=== PATIENT | female | born 1965 | race African-American/Black ===

== ENCOUNTER 2021-04-02 23:29 | Inpatient (IN) | payer MEDICAID, OTHER ==
[~2021-04-02] VITALS: Ht 162.6 cm; Wt 132.0 kg
[2021-04-03 02:28] LABS: Basophils # (auto) 0 10 ^3/uL (0-0.2); Basophils % (auto) 0.6 % (0.0-2.0); Eosinophils # (auto) 0.1 10 ^3/uL (0-0.8); Eosinophils % (auto) 1.1 % (0.0-7.0); Hematocrit 38.3 % (36.0-46.0); Hemoglobin 12.7 g/dL (12.2-16.2); Lymphocytes # (auto) 1.6 10 ^3/uL (0.4-5.4); Lymphocytes % (auto) 23.2 % (10.0-50.0); Mean Corpuscular Hemoglobin 29.1 pg (28.0-32.0); Mean Corpuscular Hgb Conc. 33.2 g/dL (32.0-36.0); Mean Corpuscular Volume 87.7 fL (80.0-100.0); Monocytes # (auto) 0.3 10 ^3/uL (0-1.3); Monocytes % (auto) 4.2 % (0.0-12.0); Neutrophils % (auto) 70.9 % (37.0-80.0); Nucleated Red Blood Cells % 0.1 %; Red Blood Cells 4.36 10^6/uL (4.0-5.20); Red Cell Distribution Width 14.8 % (11.8-14.3)
[2021-04-03 02:30] LABS: INR 1.1 (0.9-1.15); Partial Thromboplastin Time 26.1 sec (23.6-33.0)
[2021-04-03 02:31] LABS: Albumin 3.3 g/dL (3.4-5.0); BUN/Creatinine Ratio 10.7; Calcium 9.1 mg/dL (8.5-10.1); Magnesium 2.2 mg/dL (1.6-2.6); Potassium 3.4 mmol/L (3.5-5.1)
[2021-04-03 02:34] LABS: Bilirubin, Total 0.5 mg/dL (0.2-1.0); Total Protein 7.8 g/dL (6.4-8.2)
[2021-04-03 03:12] LABS: Urine Bacteria FEW /hpf (None Seen); Urine Blood Negative /uL (Negative); Urine Hyaline Cast FEW /lpf (0 - 2); Urine Mucus FEW (None Seen); Urine Specific Gravity 1.015 (1.001-1.035); Urine WBC 3 /hpf (0 - 5)
[2021-04-03] MEDS ORDERED: IOHEXOL 300 MG/ML 100ML BOTTLE IJ ONE (04:17)
[2021-04-03] MEDS ORDERED: ONDANSETRON HCL 4 MG/2 ML VIAL ONE (04:50)
[2021-04-03] MEDS ORDERED: ONDANSETRON HCL 4 MG/2 ML VIAL IV ONE (05:00)
[2021-04-03] MEDS ORDERED: HYDROmorphone HCL 2 MG/ML VL IV ONE (05:00)
[2021-04-03] MEDS ORDERED: POTASSIUM EFFERVESENT TAB 25 MEQ PO ONE (10:15)
[2021-04-03] MEDS ORDERED: TEMAZEPAM 15 MG CAP PO PRN (11:45)
[2021-04-03] MEDS ORDERED: LABETALOL HCL 5 MG/ML ML 20ML VIAL IV PRN (11:45)
[2021-04-03] MEDS ORDERED: PROMETHAZINE HCL 25 MG/ML 1ML IV PRN (11:45)
[2021-04-03] MEDS ORDERED: NITROGLYCERIN 0.4 MG SL TAB SL PRN (11:45)
[2021-04-03] MEDS ORDERED: cefTRIAXone 1GM/50ML D5W 50 ML IV ONE (11:45)
[2021-04-03] MEDS ORDERED: MORPHINE SULFATE INJECTION 2 MG/ML SYRG IV PRN (11:45)
[2021-04-03] MEDS ORDERED: ACETAMINOPHEN 500 MG TAB PO PRN (11:45)
[2021-04-03] MEDS: SODIUM CHLORIDE 0.9% 1,000 ML IV SCH ×2 (12:27→21:45)
[2021-04-03 12:39] LABS: Amphetamine Screen, Urine NEGATIVE (NEGATIVE); Barbiturate Scree,Urine NEGATIVE (NEGATIVE); Benzodiazephine Screen, Urine NEGATIVE (NEGATIVE); Cannabinoid Screen, Urine NEGATIVE (NEGATIVE); Cocaine Screen, Urine NEGATIVE (NEGATIVE)
[2021-04-03 12:42] LABS: Opiate Scree,Urine NEGATIVE (NEGATIVE); Phencyclidine Screen, Urine NEGATIVE (NEGATIVE)
[2021-04-03 12:52] LABS: Alcohol, Urine < 3.0 mg/dL (0-10)
[2021-04-03 18:04] VITALS: BP 145/81
[2021-04-03 20:00] VITALS: BP 142/88
[2021-04-03] MEDS: MORPHINE SULFATE INJECTION 2 MG/ML SYRG IV PRN (20:30)
[2021-04-03] MEDS: METOPROLOL TARTRATE 25 MG TAB PO SCH (21:30)
[2021-04-03 22:01] VITALS: BP 142/88
[2021-04-04] VITALS (7 sets, daily range): BP systolic 126–142; BP diastolic 74–88
[2021-04-04 05:30] LABS: Basophils # (auto) 0 10 ^3/uL (0-0.2); Basophils % (auto) 0.7 % (0.0-2.0); Eosinophils # (auto) 0.1 10 ^3/uL (0-0.8); Eosinophils % (auto) 1.4 % (0.0-7.0); Hematocrit 37.9 % (36.0-46.0); Hemoglobin 12.3 g/dL (12.2-16.2); Lymphocytes # (auto) 3.1 10 ^3/uL (0.4-5.4); Lymphocytes % (auto) 52.1 % (10.0-50.0); Mean Corpuscular Hemoglobin 28.7 pg (28.0-32.0); Mean Corpuscular Hgb Conc. 32.4 g/dL (32.0-36.0); Mean Corpuscular Volume 88.4 fL (80.0-100.0); Monocytes # (auto) 0.4 10 ^3/uL (0-1.3); Monocytes % (auto) 6.9 % (0.0-12.0); Neutrophils # (auto) 2.3 10 ^3/uL (1.6-8.6); Neutrophils % (auto) 38.9 % (37.0-80.0); Nucleated Red Blood Cells % 0.1 %; Red Blood Cells 4.28 10^6/uL (4.0-5.20); Red Cell Distribution Width 14.8 % (11.8-14.3); White Blood Cell 5.9 10^3/uL (4.4-10.8)
[2021-04-04 05:53] LABS: Albumin 2.8 g/dL (3.4-5.0); BUN/Creatinine Ratio 9.2; Calcium 8.5 mg/dL (8.5-10.1); Potassium 3.7 mmol/L (3.5-5.1)
[2021-04-04 05:56] LABS: Bilirubin, Total 0.5 mg/dL (0.2-1.0)
[2021-04-04] MEDS: SODIUM CHLORIDE 0.9% 1,000 ML IV SCH (08:00)
[2021-04-04] MEDS: cefTRIAXone 1GM/50ML D5W 50 ML IV SCH (09:08)
[2021-04-04] MEDS: ASPirin 81 mg TAB PO SCH (09:34)
[2021-04-04] MEDS: ENALAPRIL MALEATE 2.5 MG TAB PO SCH (09:34)
[2021-04-04] MEDS ORDERED: ENOXAPARIN SOD 40 MG/0.4 ML SYRINGE SC SCH (10:00)
[2021-04-04] MEDS: METOPROLOL TARTRATE 25 MG TAB PO SCH ×2 (10:29→22:30)
[2021-04-04] MEDS ORDERED: PANTOPRAZOLE 40 MG/10 ML VIAL INJ IV ONE (10:45)
[2021-04-04] MEDS ORDERED: IOHEXOL 350 MG/ML 100ML IJ ONE (11:38)
[2021-04-04] MEDS: MORPHINE SULFATE INJECTION 2 MG/ML SYRG IV PRN (22:30)
[2021-04-05 05:00] VITALS: BP 118/71
[2021-04-05 08:00] VITALS: BP 130/68
[2021-04-05] MEDS: cefTRIAXone 1GM/50ML D5W 50 ML IV SCH (08:33)
[2021-04-05] MEDS: METOPROLOL TARTRATE 25 MG TAB PO SCH ×2 (10:30→20:37)
[2021-04-05] MEDS: ENALAPRIL MALEATE 2.5 MG TAB PO SCH (10:30)
[2021-04-05] MEDS: ENOXAPARIN SOD 40 MG/0.4 ML SYRINGE SC SCH ×2 (10:30→20:35)
[2021-04-05] MEDS: PANTOPRAZOLE 40 MG/10 ML VIAL INJ IV SCH (10:30)
[2021-04-05] MEDS: ASPirin 81 mg TAB PO SCH (10:30)
[2021-04-05 12:00] VITALS: BP 146/87
[2021-04-05 16:00] VITALS: BP 114/53
[2021-04-05] MEDS: ERTAPENEM SOD INJ 1 GM in SODIUM CHL 0.9% 50 ML IV SCH (17:30)
[2021-04-05] MEDS: MORPHINE SULFATE INJECTION 2 MG/ML SYRG IV PRN (20:36)
[2021-04-05 22:00] VITALS: BP 163/84
[2021-04-05 23:26] VITALS: BP 154/78
[2021-04-05] MEDS: PROMETHAZINE HCL 25 MG/ML 1ML IV PRN (23:33)
[2021-04-06] MEDS: ALBUTEROL SULF 2.5 MG/0.5ML(0.5%) NEB SOLN NEB SCH ×4 (01:09→18:00)
[2021-04-06 05:00] VITALS: BP 149/74
[2021-04-06 09:00] VITALS: BP 115/68
[2021-04-06] MEDS: ENOXAPARIN SOD 40 MG/0.4 ML SYRINGE SC SCH ×2 (10:20→21:34)
[2021-04-06] MEDS: METOPROLOL TARTRATE 25 MG TAB PO SCH ×2 (10:27→21:34)
[2021-04-06] MEDS: ENALAPRIL MALEATE 2.5 MG TAB PO SCH (10:27)
[2021-04-06] MEDS: PANTOPRAZOLE 40 MG/10 ML VIAL INJ IV SCH (10:27)
[2021-04-06] MEDS: ASPirin 81 mg TAB PO SCH (10:44)
[2021-04-06 12:38] VITALS: BP 110/75
[2021-04-06] MEDS: ERTAPENEM SOD INJ 1 GM in SODIUM CHL 0.9% 50 ML IV SCH (16:30)
[2021-04-06 16:56] VITALS: BP 154/87
[2021-04-06] MEDS: traMADol HCL 50 MG TAB PO PRN (19:59)
[2021-04-06 20:33] VITALS: BP 157/87
[2021-04-06 22:00] VITALS: BP 151/88
[2021-04-07] MEDS: ALBUTEROL SULF 2.5 MG/0.5ML(0.5%) NEB SOLN NEB SCH ×4 (00:39→19:05)
[2021-04-07 05:00] VITALS: BP 129/65
[2021-04-07 08:59] VITALS: BP 141/85
[2021-04-07] MEDS: ENALAPRIL MALEATE 2.5 MG TAB PO SCH (10:46)
[2021-04-07] MEDS: METOPROLOL TARTRATE 25 MG TAB PO SCH ×2 (10:46→21:15)
[2021-04-07] MEDS: ASPirin 81 mg TAB PO SCH (10:47)
[2021-04-07] MEDS: PANTOPRAZOLE 40 MG/10 ML VIAL INJ IV SCH (10:47)
[2021-04-07] MEDS: ENOXAPARIN SOD 40 MG/0.4 ML SYRINGE SC SCH ×2 (10:47→21:16)
[2021-04-07] MEDS ORDERED: LACTULOSE 20Gm/30ML SOLN PO PRN (12:00)
[2021-04-07 12:53] VITALS: BP 147/80
[2021-04-07 16:30] VITALS: BP 139/73
[2021-04-07] MEDS: ERTAPENEM SOD INJ 1 GM in SODIUM CHL 0.9% 50 ML IV SCH (17:02)
[2021-04-07 21:50] VITALS: BP 158/76
[2021-04-08] MEDS: ALBUTEROL SULF 2.5 MG/0.5ML(0.5%) NEB SOLN NEB SCH ×4 (01:12→19:20)
[2021-04-08 04:52] VITALS: BP 128/62
[2021-04-08 08:31] VITALS: BP 145/75
[2021-04-08] MEDS: ASPirin 81 mg TAB PO SCH (09:00)
[2021-04-08] MEDS: PANTOPRAZOLE 40 MG/10 ML VIAL INJ IV SCH (09:00)
[2021-04-08] MEDS: ENOXAPARIN SOD 40 MG/0.4 ML SYRINGE SC SCH ×2 (09:01→22:10)
[2021-04-08] MEDS: ENALAPRIL MALEATE 2.5 MG TAB PO SCH (09:01)
[2021-04-08] MEDS: METOPROLOL TARTRATE 25 MG TAB PO SCH ×2 (09:01→21:54)
[2021-04-08 13:00] VITALS: BP 144/74
[2021-04-08 16:30] VITALS: BP 131/72
[2021-04-08] MEDS: ERTAPENEM SOD INJ 1 GM in SODIUM CHL 0.9% 50 ML IV SCH (17:01)
[2021-04-08 22:00] VITALS: BP 139/76
[2021-04-08 22:17] LABS: Cholesterol 113 mg/dL (< 200); HDL Cholesterol 51 mg/dL (40-59); LDL Cholesterol 46 mg/dL (< 100); Triglycerides 130 mg/dL (< 150)
[2021-04-08] MEDS: MORPHINE SULFATE INJECTION 2 MG/ML SYRG IV PRN (22:23)
[2021-04-09] MEDS: PROMETHAZINE HCL 25 MG/ML 1ML IV PRN (00:53)
[2021-04-09 05:00] VITALS: BP 134/75
[2021-04-09] MEDS: ALBUTEROL SULF 2.5 MG/0.5ML(0.5%) NEB SOLN NEB SCH ×4 (06:43→17:56)
[2021-04-09 08:00] VITALS: BP 123/74
[2021-04-09] MEDS: PANTOPRAZOLE 40 MG/10 ML VIAL INJ IV SCH (09:36)
[2021-04-09] MEDS: ASPirin 81 mg TAB PO SCH (09:36)
[2021-04-09] MEDS: ENOXAPARIN SOD 40 MG/0.4 ML SYRINGE SC SCH ×2 (09:36→22:17)
[2021-04-09] MEDS: ENALAPRIL MALEATE 2.5 MG TAB PO SCH (09:37)
[2021-04-09] MEDS: traMADol HCL 50 MG TAB PO PRN (09:37)
[2021-04-09] MEDS: METOPROLOL TARTRATE 25 MG TAB PO SCH ×2 (09:37→22:17)
[2021-04-09 11:55] VITALS: BP 139/70
[2021-04-09 16:58] VITALS: BP 156/86
[2021-04-09] MEDS: ERTAPENEM SOD INJ 1 GM in SODIUM CHL 0.9% 50 ML IV SCH (17:20)
[2021-04-09] MEDS: MORPHINE SULFATE INJECTION 2 MG/ML SYRG IV PRN (17:21)
[2021-04-09 22:00] VITALS: BP 138/92
[2021-04-10] MEDS: ALBUTEROL SULF 2.5 MG/0.5ML(0.5%) NEB SOLN NEB SCH ×4 (00:10→12:00)
[2021-04-10 00:32] VITALS: BP 138/92
[2021-04-10 05:00] VITALS: BP 115/71
[2021-04-10 09:00] VITALS: BP 124/74
[2021-04-10] MEDS: ENOXAPARIN SOD 40 MG/0.4 ML SYRINGE SC SCH (10:00)
[2021-04-10] MEDS: METOPROLOL TARTRATE 25 MG TAB PO SCH (10:00)
[2021-04-10] MEDS: PANTOPRAZOLE 40 MG/10 ML VIAL INJ IV SCH (10:00)
[2021-04-10] MEDS: ASPirin 81 mg TAB PO SCH (10:00)
[2021-04-10] MEDS: ENALAPRIL MALEATE 2.5 MG TAB PO SCH (10:01)
[2021-04-10 12:47] VITALS: BP 147/88
[2021-04-10 13:07] VITALS: BP 124/74
== END 2021-04-10 14:26 | disposition home health service (06) | DRG 720 ==
LOC: EDBD 23:29 → ER 23:29 → TELE 04-03 11:38 → TELE-WESTW 04-03 20:01
PROVIDERS: ADMIT Internal Medicine; ATTEND Family Medicine
PROC: 5A09357 Assistance with Respiratory Ventilation, Less than 24 Consecutive Hours, Continuous Positive Airway Pressure (ICD-10-PCS; 2021-04-03)
PROC: 05HD33Z Insertion of Infusion Device into Right Cephalic Vein, Percutaneous Approach (ICD-10-PCS; principal; 2021-04-06)
PROC: B54MZZA Ultrasonography of Right Upper Extremity Veins, Guidance (ICD-10-PCS; 2021-04-06)
PROC: 0GBG3ZX Excision of Left Thyroid Gland Lobe, Percutaneous Approach, Diagnostic (ICD-10-PCS; 2021-04-09)
DX: A41.51 Sepsis due to Escherichia coli [E. coli] (principal); I11.0 Hypertensive heart disease with heart failure; I50.9 Heart failure, unspecified; Z68.43 Body mass index [BMI] 50.0-59.9, adult; E66.01 Morbid (severe) obesity due to excess calories; E04.2 Nontoxic multinodular goiter; N39.0 Urinary tract infection, site not specified; R55 Syncope and collapse; E78.00 Pure hypercholesterolemia, unspecified; E78.5 Hyperlipidemia, unspecified; K59.00 Constipation, unspecified; Z16.12 Extended spectrum beta lactamase (ESBL) resistance; Z86.73 Personal history of transient ischemic attack (TIA), and cerebral infarction without residual deficits; Z79.899 Other long term (current) drug therapy; Z79.82 Long term (current) use of aspirin; Z82.0 Family history of epilepsy and other diseases of the nervous system; Z83.3 Family history of diabetes mellitus; Z87.11 Personal history of peptic ulcer disease; Z82.49 Family history of ischemic heart disease and other diseases of the circulatory system; Z80.0 Family history of malignant neoplasm of digestive organs; Z88.2 Allergy status to sulfonamides; Z88.8 Allergy status to other drugs, medicaments and biological substances
CPT/HCPCS: 36415; 70450; 70551; 71045; 71275; 74177; 76536; 76775; 76942; 80053; 80061; 80307; 81001; 82550; 83735; 83880; 84443; 84484; 85025; 85379; 85610; 85730; 87086; 87088; 87186; 87426; 93005; 93306; 93886; 93970; 94640; 94660; 95819; 96365; 96366; 96375; C9113; G0378; J0696; J1335; J2405

== ENCOUNTER → 2021-04-10 | Emergency (ER) | payer MEDICAID | END | disposition left against medical advice (07) | LOC: ER 19:00 | DX: R30.0 Dysuria (principal); Z53.21 Procedure and treatment not carried out due to patient leaving prior to being seen by health care provider ==

== ENCOUNTER → 2021-04-11 | Emergency (ER) | payer MEDICAID | END | disposition left against medical advice (07) | LOC: ER 15:12 | DX: Z45.2 Encounter for adjustment and management of vascular access device (principal); Z53.21 Procedure and treatment not carried out due to patient leaving prior to being seen by health care provider ==

== ENCOUNTER 2021-04-12 15:25 | Emergency (ER) | payer MEDICAID ==
[~2021-04-12] VITALS: Ht 157.5 cm; Wt 129.3 kg
[2021-04-12 16:15] VITALS: BP 133/66
== END 2021-04-12 16:44 | disposition home or self-care (01) ==
LOC: ER 15:25
DX: T80.219A Unspecified infection due to central venous catheter, initial encounter (principal); R51.9 Headache, unspecified; I11.0 Hypertensive heart disease with heart failure; I50.9 Heart failure, unspecified; E78.5 Hyperlipidemia, unspecified; Z98.890 Other specified postprocedural states; Z86.73 Personal history of transient ischemic attack (TIA), and cerebral infarction without residual deficits; Z87.442 Personal history of urinary calculi; Z88.8 Allergy status to other drugs, medicaments and biological substances; Z88.2 Allergy status to sulfonamides

== ENCOUNTER 2022-03-13 18:43 | Emergency (ER) | payer MEDICAID ==
[~2022-03-13] VITALS: Ht 157.5 cm; Wt 135.0 kg
[2022-03-13 18:51] VITALS: BP 156/71
[2022-03-13 19:12] LABS: Basophils # (auto) 0.1 10 ^3/uL (0-0.2); Basophils % (auto) 1.4 % (0.0-2.0); Eosinophils # (auto) 0.1 10 ^3/uL (0-0.8); Eosinophils % (auto) 1.7 % (0.0-7.0); Hematocrit 41.7 % (36.0-46.0); Hemoglobin 13.5 g/dL (12.2-16.2); Lymphocytes # (auto) 2.8 10 ^3/uL (0.4-5.4); Lymphocytes % (auto) 50.9 % (10.0-50.0); Mean Corpuscular Hemoglobin 28.2 pg (28.0-32.0); Mean Corpuscular Hgb Conc. 32.3 g/dL (32.0-36.0); Mean Corpuscular Volume 87.3 fL (80.0-100.0); Monocytes # (auto) 0.4 10 ^3/uL (0-1.3); Monocytes % (auto) 6.9 % (0.0-12.0); Neutrophils # (auto) 2.1 10 ^3/uL (1.6-8.6); Neutrophils % (auto) 39.1 % (37.0-80.0); Red Blood Cells 4.78 10^6/uL (4.0-5.20); Red Cell Distribution Width 14.5 % (11.8-14.3); White Blood Cell 5.4 10^3/uL (4.4-10.8)
[2022-03-13 19:23] LABS: Urine Bacteria NONE SEEN /hpf (None Seen); Urine Blood 1+ /uL (Negative); Urine Mucus FEW (None Seen); Urine Specific Gravity 1.023 (1.001-1.035); Urine WBC 2 /hpf (0 - 5)
[2022-03-13 19:29] LABS: Albumin 3.6 g/dL (3.4-5.0); Calcium 8.9 mg/dL (8.5-10.1); Potassium 3.8 mmol/L (3.5-5.1)
[2022-03-13 19:33] LABS: BUN/Creatinine Ratio 14.9; Bilirubin, Total 0.4 mg/dL (0.2-1.0); Total Protein 7.6 g/dL (6.4-8.2)
== END 2022-03-13 23:25 | disposition left against medical advice (07) ==
LOC: ER 18:44
DX: K92.0 Hematemesis (principal); R10.32 Left lower quadrant pain; R00.2 Palpitations; R06.02 Shortness of breath; Z53.21 Procedure and treatment not carried out due to patient leaving prior to being seen by health care provider
CPT/HCPCS: 36415; 80053; 81001; 84484; 85025; 93005

== ENCOUNTER 2022-03-25 09:54 | Day surgery (SDC) | payer MEDICAID ==
[2022-03-23 14:29] LABS: Basophils # (auto) 0.1 10 ^3/uL (0-0.2); Basophils % (auto) 1.4 % (0.0-2.0); Eosinophils # (auto) 0.1 10 ^3/uL (0-0.8); Eosinophils % (auto) 1.9 % (0.0-7.0); Hematocrit 39.9 % (36.0-46.0); Hemoglobin 12.8 g/dL (12.2-16.2); Lymphocytes # (auto) 2.3 10 ^3/uL (0.4-5.4); Lymphocytes % (auto) 46.7 % (10.0-50.0); Mean Corpuscular Hemoglobin 28.2 pg (28.0-32.0); Mean Corpuscular Hgb Conc. 32.1 g/dL (32.0-36.0); Mean Corpuscular Volume 87.8 fL (80.0-100.0); Monocytes # (auto) 0.3 10 ^3/uL (0-1.3); Monocytes % (auto) 5.2 % (0.0-12.0); Neutrophils # (auto) 2.2 10 ^3/uL (1.6-8.6); Neutrophils % (auto) 44.8 % (37.0-80.0); Red Blood Cells 4.55 10^6/uL (4.0-5.20); Red Cell Distribution Width 14.8 % (11.8-14.3); White Blood Cell 4.8 10^3/uL (4.4-10.8)
[2022-03-23 14:55] LABS: Albumin 3.2 g/dL (3.4-5.0); Calcium 8.8 mg/dL (8.5-10.1); INR 1.05 (0.9-1.15); Partial Thromboplastin Time 26.6 sec (24.6-33.4); Potassium 3.9 mmol/L (3.5-5.1)
[2022-03-23 15:00] LABS: BUN/Creatinine Ratio 9.6; Bilirubin, Total 0.4 mg/dL (0.2-1.0); Total Protein 7.8 g/dL (6.4-8.2)
[~2022-03-25] VITALS: Ht 157.5 cm; Wt 134.3 kg
[~2022-03-25 09:54] MED LIST: ASPI81CH59 PO; CARV3.1240 PO; FURO20TA3 PO; LEVO25TA49 PO; LOSA-39 PO; METH750T22 PO
[2022-03-25] MEDS ORDERED: LIDOCAINE VISCOUS 2% 15ML UD ONE (10:26)
[2022-03-25] MEDS ORDERED: MIDAZOLAM HCL 5 MG/ML-1ML VIAL ONE (10:26)
[2022-03-25] MEDS ORDERED: diphenhdrAMINE HCL 50 MG/1 ML VL ONE (10:27)
[2022-03-25] MEDS ORDERED: fentaNYL CITRATE 100 MCG/2 ML VL ONE (10:27)
[2022-03-25] MEDS ORDERED: MIDAZOLAM HCL 2MG/2ML 2ml VIAL (1mg/ml) ONE (12:02)
[2022-03-25] MEDS ORDERED: KETAMINE HCL 10 ML ONE (12:02)
[2022-03-25 12:55] VITALS: BP 134/61
== END 2022-03-25 13:15 | disposition home or self-care (01) ==
LOC: GI 09:54
PROVIDERS: ATTEND Internal Medicine Gastroenterology
DX: K21.9 Gastro-esophageal reflux disease without esophagitis (principal); R10.84 Generalized abdominal pain; K21.00 Gastro-esophageal reflux disease with esophagitis, without bleeding; K29.50 Unspecified chronic gastritis without bleeding; K44.9 Diaphragmatic hernia without obstruction or gangrene; R11.2 Nausea with vomiting, unspecified; I11.0 Hypertensive heart disease with heart failure; I50.9 Heart failure, unspecified; Z79.899 Other long term (current) drug therapy; Z88.8 Allergy status to other drugs, medicaments and biological substances; Z98.891 History of uterine scar from previous surgery; I73.9 Peripheral vascular disease, unspecified; Z20.822 Contact with and (suspected) exposure to COVID-19
CPT/HCPCS: 36415; 43239; 80053; 85025; 85610; 85730; 88305; 88312; 88342; J2250; J3010; J7030; U0003

== ENCOUNTER 2022-09-17 09:57 | Inpatient (IN) | payer MEDICAID ==
[~2022-09-17] VITALS: Ht 157.5 cm; Wt 137.8 kg
[2022-09-17 10:48] LABS: Basophils # (auto) 0 10 ^3/uL (0-0.2); Basophils % (auto) 0.3 % (0.0-2.0); Eosinophils # (auto) 0.1 10 ^3/uL (0-0.8); Eosinophils % (auto) 2.3 % (0.0-7.0); Hematocrit 39.9 % (36.0-46.0); Hemoglobin 13.3 g/dL (12.2-16.2); Lymphocytes # (auto) 2.2 10 ^3/uL (0.4-5.4); Lymphocytes % (auto) 44.4 % (10.0-50.0); Mean Corpuscular Hemoglobin 28.7 pg (28.0-32.0); Mean Corpuscular Hgb Conc. 33.4 g/dL (32.0-36.0); Mean Corpuscular Volume 85.7 fL (80.0-100.0); Monocytes # (auto) 0.2 10 ^3/uL (0-1.3); Monocytes % (auto) 4.2 % (0.0-12.0); Neutrophils # (auto) 2.4 10 ^3/uL (1.6-8.6); Neutrophils % (auto) 48.8 % (37.0-80.0); Nucleated Red Blood Cells % 0.2 %; Red Blood Cells 4.65 10^6/uL (4.0-5.20); White Blood Cell 4.9 10^3/uL (4.4-10.8)
[2022-09-17 10:49] LABS: Albumin 3.3 g/dL (3.4-5.0); Calcium 9.5 mg/dL (8.5-10.1); Magnesium 2.4 mg/dL (1.6-2.6)
[2022-09-17 10:50] LABS: INR 1.03 (0.9-1.15); Partial Thromboplastin Time 26.2 sec (24.6-33.4)
[2022-09-17 10:53] LABS: BUN/Creatinine Ratio 12.8 (10.0-20.0); Bilirubin, Total 0.5 mg/dL (0.2-1.0); Total Protein 7.3 g/dL (6.4-8.2)
[2022-09-17] MEDS ORDERED: ENOXAPARIN SOD 40 MG/0.4 ML SYRINGE SC ONE (13:30)
[2022-09-17] MEDS ORDERED: NITROGLYCERIN 0.4 MG SL TAB SL PRN (13:30)
[2022-09-17] MEDS ORDERED: ACETAMINOPHEN 325 MG TAB PO PRN (13:30)
[2022-09-17] MEDS ORDERED: CARVEDILOL 3.125 MG TAB PO ONE (14:30)
[2022-09-17] MEDS ORDERED: FUROSEMIDE 20 MG TAB PO ONE (14:30)
[2022-09-17] MEDS ORDERED: HYDROcodone-ACET 5/325MG TAB PO ONE (16:00)
[2022-09-17] MEDS: CARVEDILOL 3.125 MG TAB PO SCH (22:11)
[2022-09-17] MEDS: ONDANSETRON HCL 4 MG/2 ML VIAL IV PRN (22:37)
[2022-09-17] MEDS: MORPHINE SULFATE 4 MG/ML SYR/VIAL IV PRN (22:39)
[2022-09-17] MEDS: ENOXAPARIN SOD 150 MG/1 ML SYRINGE SC SCH (22:46)
[2022-09-18 00:48] LABS: Urine Bacteria NONE SEEN /hpf (None Seen); Urine Blood Negative /uL (Negative); Urine Hyaline Cast FEW /lpf (0 - 2); Urine Mucus FEW (None Seen); Urine Specific Gravity 1.021 (1.001-1.035); Urine WBC 3 /hpf (0 - 5)
[2022-09-18] MEDS: MORPHINE SULFATE 4 MG/ML SYR/VIAL IV PRN ×2 (02:20→11:01)
[2022-09-18] MEDS: ONDANSETRON HCL 4 MG/2 ML VIAL IV PRN ×2 (02:24→12:01)
[2022-09-18 05:05] VITALS: BP 140/76
[2022-09-18] MEDS ORDERED: LEVOTHYROXINE SODIUM 50 MCG TAB PO SCH (07:00)
[2022-09-18] MEDS ORDERED: IOHEXOL 350 MG/ML 100ML IJ ONE (07:55)
[2022-09-18 08:00] VITALS: BP_SYST 115; BP_DIAS 47; BP_DIAS 97
[2022-09-18 08:16] LABS: Basophils # (auto) 0 10 ^3/uL (0-0.2); Basophils % (auto) 0.7 % (0.0-2.0); Eosinophils # (auto) 0.1 10 ^3/uL (0-0.8); Hematocrit 37.9 % (36.0-46.0); Hemoglobin 12.8 g/dL (12.2-16.2); Lymphocytes # (auto) 2.4 10 ^3/uL (0.4-5.4); Lymphocytes % (auto) 40.7 % (10.0-50.0); Mean Corpuscular Hemoglobin 29.2 pg (28.0-32.0); Mean Corpuscular Hgb Conc. 33.9 g/dL (32.0-36.0); Mean Corpuscular Volume 86.1 fL (80.0-100.0); Monocytes # (auto) 0.4 10 ^3/uL (0-1.3); Monocytes % (auto) 7.6 % (0.0-12.0); Neutrophils # (auto) 2.8 10 ^3/uL (1.6-8.6); Red Cell Distribution Width 15.1 % (11.8-14.3); White Blood Cell 5.8 10^3/uL (4.4-10.8)
[2022-09-18 08:50] LABS: Calcium 9.1 mg/dL (8.5-10.1); Potassium 3.4 mmol/L (3.5-5.1)
[2022-09-18 08:55] LABS: BUN/Creatinine Ratio 14.8 (10.0-20.0); Bilirubin, Total 0.5 mg/dL (0.2-1.0); Total Protein 7.3 g/dL (6.4-8.2)
[2022-09-18] MEDS: ENOXAPARIN SOD 150 MG/1 ML SYRINGE SC SCH (09:16)
[2022-09-18] MEDS: CARVEDILOL 3.125 MG TAB PO SCH (09:18)
[2022-09-18] MEDS ORDERED: DOCUSATE SOD 100 MG CAP PO SCH (10:00)
[2022-09-18] MEDS ORDERED: ASPirin 81 mg TAB PO SCH (10:00)
[2022-09-18] MEDS ORDERED: FUROSEMIDE 20 MG TAB PO SCH (10:00)
[2022-09-18] MEDS ORDERED: LOSARTAN POTASSIUM 50 MG TAB PO SCH ×2 (10:00)
[2022-09-18 12:00] VITALS: BP 143/71
[2022-09-18] MEDS ORDERED: MORPHINE SULFATE INJ 2 MG/ml SYRG IV PRN (12:00)
[2022-09-18 15:43] VITALS: BP 143/71
[2022-09-18 16:00] VITALS: BP 124/81
[2022-09-19 14:29] LABS: Hepatitis C Antibody Negative (Negative)
== END 2022-09-18 16:50 | disposition home or self-care (01) | DRG 198 ==
LOC: ER 09:57 → TELE 13:34 → TELE-CENTR 09-18 05:00
PROVIDERS: ADMIT Nurse Practitioner Family; ATTEND Nurse Practitioner Family
DX: R07.89 Other chest pain (principal); I20.0 Unstable angina; I11.0 Hypertensive heart disease with heart failure; I50.9 Heart failure, unspecified; E03.9 Hypothyroidism, unspecified; E78.5 Hyperlipidemia, unspecified; J45.909 Unspecified asthma, uncomplicated; E66.01 Morbid (severe) obesity due to excess calories; G47.30 Sleep apnea, unspecified; Z80.0 Family history of malignant neoplasm of digestive organs; Z82.0 Family history of epilepsy and other diseases of the nervous system; Z86.73 Personal history of transient ischemic attack (TIA), and cerebral infarction without residual deficits; Z87.442 Personal history of urinary calculi
CPT/HCPCS: 36415; 71046; 71275; 80053; 81001; 83735; 83880; 84100; 84484; 85025; 85379; 85610; 85730; 86803; 87340; 93005; 93306; 96372; G0378; J2405

== ENCOUNTER → 2023-06-22 | Outpatient (CLI) | payer MEDICAID ==
[~2023-06-22] MED LIST changes: +ALBUTEROL SULF 2.5 MG/0.5ML(0.5%) NEB SOLN ONE; -LOSA-39 PO; +LOSA100T58 PO; +METH-1182 PO; -METH750T22 PO
== END | disposition home or self-care (01) ==
LOC: RT 10:34
PROVIDERS: ATTEND Internal Medicine Pulmonary Disease
DX: Z01.810 Encounter for preprocedural cardiovascular examination (principal); R06.09 Other forms of dyspnea
CPT/HCPCS: 94060; 94727; 94729

== ENCOUNTER 2024-03-14 14:06 | Emergency (ER) | payer MEDICAID ==
[~2024-03-14] VITALS: Ht 170.2 cm; Wt 104.5 kg
[~2024-03-14 14:06] MED LIST changes: -ALBUTEROL SULF 2.5 MG/0.5ML(0.5%) NEB SOLN ONE; +HYDR-4902 PO; +LEVO25TA2 PO; -LEVO25TA49 PO; +LOSA-535 PO; -LOSA100T58 PO
[2024-03-14] MEDS: PANTOPRAZOLE 40 MG/10 ML VIAL INJ IV ONE (15:00)
[2024-03-14 16:41] LABS: Urine Bacteria None Seen /hpf (None Seen)
[2024-03-14 16:41] LABS: Basophils # (auto) 0.1 10 ^3/uL (0-0.2); Basophils % (auto) 1.1 % (0.0-2.0); Eosinophils # (auto) 0.1 10 ^3/uL (0-0.8); Eosinophils % (auto) 2.3 % (0.0-7.0); Hemoglobin 13.4 g/dL (12.2-16.2); Lymphocytes # (auto) 2.2 10 ^3/uL (0.4-5.4); Lymphocytes % (auto) 42.2 % (10.0-50.0); Mean Corpuscular Hemoglobin 29.8 pg (28.0-32.0); Mean Corpuscular Hgb Conc. 32.7 g/dL (32.0-36.0); Mean Corpuscular Volume 91.3 fL (80.0-100.0); Monocytes # (auto) 0.5 10 ^3/uL (0-1.3); Monocytes % (auto) 10.4 % (0.0-12.0); Neutrophils # (auto) 2.3 10 ^3/uL (1.6-8.6); Nucleated Red Blood Cells % 0.1 %; Platelet Count (auto) 235 10^3/uL (140-450); Red Blood Cells 4.49 10^6/uL (4.0-5.20); Red Cell Distribution Width 14.7 % (11.8-14.3); White Blood Cell 5.3 10^3/uL (4.4-10.8)
[2024-03-14 16:54] LABS: INR 1.1 (0.9-1.15); Partial Thromboplastin Time 28.7 SEC (24.5-34.5); Prothrombin Time 11.6 sec (9.3-11.8)
[2024-03-14 16:59] LABS: Alanine Aminotransferase 17 U/L (7-40); Albumin 3.9 g/dL (3.2-4.8); Alkaline Phosphatase 56 U/L (46-116); Anion Gap 8 (5-15); Aspartate Aminotransferase 18 U/L (13-40); BUN/Creatinine Ratio 9.9 (10.0-20.0); Blood Urea Nitrogen 7 mg/dL (9-23); Calcium 9.8 mg/dL (8.7-10.4); Carbon Dioxide 27 mmol/L (20-31); Chloride 108 mmol/L (98-107); Glucose 82 mg/dL (74-106); Potassium 4.3 mmol/L (3.5-5.1); Sodium 143 mmol/L (136-145)
[2024-03-14 17:00] LABS: Bilirubin, Total 0.4 mg/dL (0.2-1.0); Total Protein 6.8 g/dL (5.7-8.2)
[2024-03-14 17:13] LABS: Urine Blood TRACE /uL (Negative); Urine Clarity Clear (Clear); Urine Color Light-Yellow (Yellow); Urine Mucus FEW (None Seen); Urine Protein, UAD Negative (Negative); Urine Specific Gravity 1.009 (1.001-1.035); Urine Urobilinogen Normal (Negative); Urine WBC 1 /hpf (0 - 5); Urine pH 5.5 (5.0-9.0)
[2024-03-14] MEDS: MORPHINE SULFATE 4 MG/ML SYR/VIAL IV ONE (17:46)
[2024-03-14] MEDS: ONDANSETRON HCL 4 MG/2 ML VIAL IV ONE (17:47)
[2024-03-14] MEDS: SODIUM CHLORIDE 0.9% 500 ML IV ONE (17:47)
[2024-03-14] MEDS ORDERED: OMEP-434 PO (18:39)
[2024-03-14 19:00] VITALS: BP 141/82; PULSE 63; RESP 19; TEMP 98.3; O2SAT 95
== END 2024-03-14 19:02 | disposition home or self-care (01) ==
LOC: EDBD 14:06 → ER 14:12
DX: K92.2 Gastrointestinal hemorrhage, unspecified (principal); M79.652 Pain in left thigh; I11.0 Hypertensive heart disease with heart failure; I50.9 Heart failure, unspecified; E78.5 Hyperlipidemia, unspecified; J45.909 Unspecified asthma, uncomplicated; Z86.73 Personal history of transient ischemic attack (TIA), and cerebral infarction without residual deficits; Z98.890 Other specified postprocedural states; Z88.2 Allergy status to sulfonamides; Z88.8 Allergy status to other drugs, medicaments and biological substances; Z79.899 Other long term (current) drug therapy; Z79.82 Long term (current) use of aspirin
CPT/HCPCS: 36415; 74176; 80053; 81001; 83605; 85025; 85610; 85730; 96361; 96374; 96375; 99285; J2270; J2405; J2470; J7040

== ENCOUNTER 2024-04-09 10:40 | Inpatient (IN) | payer MEDICAID ==
[~2024-04-09] VITALS: Ht 157.5 cm; Wt 104.3 kg
[~2024-04-09 10:40] MED LIST changes: +OMEP-434 PO
--- NOTE | 2024-04-09 11:10 | ED.PDOC ---
History of Present Illness HPI Comments 59-year-old female presents with a chief complaint of abdominal pain, nausea, vomiting, and dizziness. Patient reports that she was seen last night at [facility] and states that she had a CT scan that showed she had a cyst and a urinary tract infection. Patient reports that she had bariatric surgery in October 2023 and a revision surgery in December 2023 due to a complication. Patient mentions that she has not been able to take her antibiotics from [facility] due to her persistent nausea. Patient reports that she has a follow-up appointment with her PMD on 04/15/2024. No other symptoms or modifying factors present at this time. Chief Complaint: Dizziness Time Seen by MD: 10:57 Primary Care Provider: unknown Reviewed Notes: Medications, Allergies Allergies: Coded Allergies: Propofol (Verified Allergy, Unknown, 04/02/21) Sulfa Antibiotics (Verified Allergy, Unknown, 04/02/21) Home Meds Active Scripts Omeprazole Magnesium (Omeprazole) 20 Mg Tab, 20 MG PO DAILY, #30 TAB Prov:DANUTA CADENA MD 03/14/24 Hydrocodone-Acetaminophen (Hydrocodone Bitartrate/AC 5-325 mg) 1 Tab Tab, 1 TAB PO Q4HP PRN, #20 TAB Prov:YESI AMIN DO 09/02/23 Reported Medications Losartan Potassium (Losartan Potassium) 100 Mg Tab, 100 MG PO DAILY, TAB 03/24/22 Furosemide (Furosemide) 20 Mg Tab, 20 MG PO, TAB 03/24/22 Aspirin (Aspirin Low Dose) 81 Mg Chw, 81 MG PO DAILY, TAB.CHEW 03/24/22 Carvedilol (Carvedilol) 3.125 Mg Tab, 3.125 MG PO BID, TAB 03/24/22 Methocarbamol (Methocarbamol) 750 Mg Tab, 750 MG PO TID, TAB 03/24/22 Levothyroxine Sodium (Synthroid) 25 Mcg Tab, 50 MCG PO, TAB 03/24/22 Information Source: Patient Mode of Arrival: Ambulatory Severity: Moderate Timing: Days Duration: Since onset Prehospital treatment: None Past Medical History PAST MEDICAL HISTORY: Asthma, CHF, CVA, High Lipids, HTN, Kidney Stones 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: Uterine Fibroids Family History Family History: Family hx of heart [place] Social History Smoker: Non-Smoker Alcohol: Denies ETOH Use Drugs: Denies Drug Use Lives In: Home Constitutional: denies: chills, diaphoresis, fatigue, fever, malaise, sweats, weakness, others EENTM: denies: blurred vision, double vision, ear bleeding, ear discharge, ear drainage, ear pain, ear ringing, eye pain, eye redness, hearing loss, mouth bobo n, mouth swelling, nasal discharge, nose bleeding, nose congestion, nose pain, photophobia, tearing, throat pain, throat swelling, voice changes, others Respiratory: denies: cough, hemoptysis, orthopnea, SOB at rest, shortness of breath, SOB with excertion, stridor, wheezing, others Cardiovascular: denies: chest pain, dizzy spells, diaphoresis, Dyspnea on exertion, edema, irregular heart beat, left arm pain, lightheadedness, palpitations, PND, syncope, others Gastrointestinal: reports: abdominal pain, nausea, vomiting; denies: abdomen distended, blood streaked bowels, constipated, diarrhea, dysphagia, difficulty swallowing, hematemesis, melena, poor appetite, poor fluid intake, rectal bleeding, rectal pain, others Genitourinary: denies: abnormal vagina bleeding, burning, dyspareunia, dysuria, flank pain, frequency, hematuria, incontinence, pain, , vagina discharge, urgency, others Neurological: reports: dizziness; denies: fainting, headache, left sided numbness, left sided weakness, numbness, paresthesia, pre-existing deficit, right sided numbness, right sided weakness, seizure, speech problems, tingling, tremors, weakness, others Musculoskeletal: denies: back pain, gout, joint pain, joint swelling, muscle pain, muscle stiffness, neck pain, others Integumetry: denies: bruises, change in color, change in hair/nails, dryness, laceration, lesions, lumps, rash, wounds, others Allergic/Immunocompromised: denies: Difficulty Healing, Frequent Infections, Hives, Itching, others Hematologic/Lymphatic: denies: anemia, blood clots, easy bleeding, easy bruising, swollen glands, others Endocrine: denies: excessive hunger, excessive sweating, excessive thirst, excessive urination, flushing, intolerance to cold, intolerance to heat, unexplained weight gain, unexplained weight loss, others Psychiatric: denies: anxiety, bipolar disorder, depression, hopeless, panic disorder, schizophrenia, sleepless, suicidal, others All Other Systems: Reviewed and Negative Physical Exam General Appearance: Moderate Distress, Normal HEENT: Normal ENT Inspection, Pharynx Normal, TMs Normal Neck: Full Range of Motion, Non-Tender, Normal, Normal Inspection Respiratory: Chest Non-Tender, Lungs Clear, No Accessory Muscle Use, No Re spiratory Distress, Normal Breath Sounds Cardiovascular: No Edema, No JVD, No Murmur, No Gallop, Normal Peripheral Pulses, Regular Rate/Rhythm Breast Exam: Deferred Gastrointestinal: No Organomegaly, Non Tender, No Pulsatile Mass, Normal Bowel Sounds, Soft Genitalia: Deferred Pelvic: Deferred Rectal: Deferred Extremities: No calf tenderness, Normal capillary refill, Normal inspection, Normal range of motion, Non-tender, No pedal edema Musculoskeletal : Apperance: Normal Neurologic: Alert, 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 Was a procedure done?: No Differential Dx Considerations may include: Autonomic disorder Electrolyte imbalance X-Ray, Labs, Meds, VS Vital Signs Date Time Temp Pulse Resp B/P (MAP) Pulse Ox O2 Delivery O2 Flow Rate FiO2 04/09/24 12:37 71 16 96 Room Air* 0 21 04/09/24 12:37 71 16 144/62 (89) 96 04/09/24 10:57 77 04/09/24 10:56 98.3 77 16 160/99 (119) 96 Lab Test 04/09/24 16:06 04/09/24 11:05 04/09/24 10:55 Range/Units Urine Color Dark-yellow Yellow Urine Clarity Clear Clear Urine pH 5.5 5.0-9.0 Urine Specific [place] 1.050 H 1.001-1.035 Urine Protein Trace H Negative Urine Ketones 1+ H Negative Urine Blood Negative Negative /uL Urine Nitrite Negative Negative Urine Bilirubin Negative Negative Urine Urobilinogen Normal Negative mg/dL Urine Leukocyte Esterase Negative Negative /uL Urine RBC 6 0 - 4 /hpf Urine WBC 5 0 - 5 /hpf Urine Squamous Epithelial Cells Few <5 /hpf Urine Calcium Oxalate Crystals Few None Seen Urine Bacteria None seen None Seen /hpf Urine Mucus Few None Seen Urine Glucose Normal Normal mg/dL White Blood Count 5.3 4.4-10.8 10^3/uL Red Blood Count 4.75 4.0-5.20 10^6/uL Hemoglobin 14.0 12.2-16.2 g/dL Hematocrit 42.7 36.0-46.0 % Mean Corpuscular Volume 89.9 80.0-100.0 fL Mean Corpuscular Hemoglobin 29.5 28.0-32.0 pg Mean Corpuscular Hemoglobin Concent 32.8 32.0-36.0 g/dL Red Cell Distribution Width 14.2 11.8-14.3 % Platelet Count 241 140-450 10^3/uL Mean Platelet Volume 8.0 6.9-10.8 fL Neutrophils (%) (Auto) 51.1 37.0-80.0 % Lymphocytes (%) (Auto) 38.1 10.0-50.0 % Monocytes (%) (Auto) 8.3 0.0-12.0 % Eosinophils (%) (Auto) 1.4 0.0-7.0 % Basophils (%) (Auto) 1.1 0.0-2.0 % Neutrophils # (Auto) 2.7 1.6-8.6 10 ^3/uL Lymphocytes # (Auto) 2.0 0.4-5.4 10 ^3/uL Monocytes # (Auto) 0.4 0-1.3 10 ^3/uL Eosinophils # (Auto) 0.1 0-0.8 10 ^3/uL Basophils # (Auto) 0.1 0-0.2 10 ^3/uL Nucleated Red Blood Cells 0.1 % D-Dimer, Quantitative 0.70 H 0.0-0.49 mg/L FEU Sodium Level 140 136-145 mmol/L Potassium Level 3.7 3.5-5.1 mmol/L Chloride Level 106 98-107 mmol/L Carbon Dioxide Level 27 20-31 mmol/L Anion Gap 7 5-15 Blood Urea Nitrogen 9 9-23 mg/dL Creatinine 0.78 0.550-1.02 mg/dL Glomerular Filtration Rate Calc 87 >90 mL/min BUN/Creatinine Ratio 11.5 10.0-20.0 Serum Glucose 92 74-106 mg/dL Calcium Level 9.9 8.7-10.4 mg/dL B-Type Natriuretic Peptide 51.21 0-100 pg/mL POC Glucose 92 70-106 mg/dl Current Medications Medications (Trade) Dose Ordered Sig/Daniel Route Start Time Stop Time Status Last Admin Ondansetron HCl (Zofran) 4 mg ONCE ONCE IV 04/09/24 13:15 04/09/24 13:16 DC 04/09/24 13:20 Acetaminophen/ Hydrocodone Bitart ([place] 10/325MG Tab) 1 tab ONCE ONCE PO 04/09/24 13:15 04/09/24 13:16 DC 04/09/24 14:00 Sodium Chloride (Saline Lock Ns) 10 ml Q8HR IV 04/09/24 14:00 04/09/24 14:00 Patient alert. Complaining of dizziness weakness. Was seen at [facility] yesterday. Vitals stable. Blood pressure elevated. Was diagnosed with UTI and sent home. He just filled her prescription of her antibiotic. She has not taken any medication. Reviewed her history. Explained to the patient. EKG reviewed does not show any acute changes. Time of 1ST Reevaluation: 11:27 Reevaluation 1ST: Unchanged Patient Education/Counseling: Diagnosis, Treatment, Prognosis Family Education/Counseling: No Family Present Departure 1 Departure Time of Disposition: 11:15 Impression: Primary Impression: Hypertensive urgency Additional Impressions: Autonomic disorder Generalized weakness Disposition: ADMITTED INPATIENT Admit to: Med Surg Condition: Guarded Critical Care Note Critical Care Time?: Yes (45 min-critical care time only) Stability Stability form required: No Heart Score Heart Score: Heart Score Response (Comments) Value History Slightly Suspicious 0 EKG Normal 0 Age 45-64 1 Risk Factors 1 or 2 risk factors 1 Troponin Normal limit 0 Total 2 I personally scribed for ERICK ANGEL MD ([email or web address]) on 04/09/24 at 11:10. Electronically submitted by Tomer Jessica ([email or web address]). ERICK ANGEL MD Apr 09, 2024 11:10
--- NOTE | 2024-04-09 11:39 | DVH ---
CHEST RADIOGRAPH Indication:sob Technique: Single frontal view of the chest was obtained COMPARISON: XY CHEST PORTABLE on DOS: 09/17/22 FINDINGS: Lines and Tubes: None Lungs: Clear Pleura: No effusion. No pneumothorax. Cardiomediastinal contours: Unremarkable Bones: Unremarkable IMPRESSION: No acute disease.
[2024-04-09 11:49] LABS: Chloride 106 mmol/L (98-107); Potassium 3.7 mmol/L (3.5-5.1); Sodium 140 mmol/L (136-145)
[2024-04-09 11:50] LABS: Anion Gap 7 (5-15); Calcium 9.9 mg/dL (8.7-10.4); Carbon Dioxide 27 mmol/L (20-31)
[2024-04-09 11:51] LABS: Basophils # (auto) 0.1 10 ^3/uL (0-0.2); Basophils % (auto) 1.1 % (0.0-2.0); Eosinophils # (auto) 0.1 10 ^3/uL (0-0.8); Eosinophils % (auto) 1.4 % (0.0-7.0); Hematocrit 42.7 % (36.0-46.0); Lymphocytes % (auto) 38.1 % (10.0-50.0); Mean Corpuscular Hemoglobin 29.5 pg (28.0-32.0); Mean Corpuscular Hgb Conc. 32.8 g/dL (32.0-36.0); Mean Corpuscular Volume 89.9 fL (80.0-100.0); Monocytes # (auto) 0.4 10 ^3/uL (0-1.3); Monocytes % (auto) 8.3 % (0.0-12.0); Neutrophils # (auto) 2.7 10 ^3/uL (1.6-8.6); Neutrophils % (auto) 51.1 % (37.0-80.0); Nucleated Red Blood Cells % 0.1 %; Platelet Count (auto) 241 10^3/uL (140-450); Red Blood Cells 4.75 10^6/uL (4.0-5.20); Red Cell Distribution Width 14.2 % (11.8-14.3); White Blood Cell 5.3 10^3/uL (4.4-10.8)
[2024-04-09 11:55] LABS: BUN/Creatinine Ratio 11.5 (10.0-20.0); Blood Urea Nitrogen 9 mg/dL (9-23); Glucose 92 mg/dL (74-106)
[2024-04-09 12:37] VITALS: PULSE 71; RESP 16; O2SAT 96
[2024-04-09] MEDS: ONDANSETRON HCL 4 MG/2 ML VIAL IV ONE (13:20)
[2024-04-09] MEDS: HYDROcodone-ACET 10/325MG TAB PO ONE (14:00)
[2024-04-09] MEDS ORDERED: ACETAMINOPHEN 325 MG TAB PO PRN (14:00)
[2024-04-09] MEDS: SODIUM CHLOR 0.9% PF (SALINE LOCK) 10ML VIAL/SYR IV SCH (14:00)
[2024-04-09] MEDS ORDERED: cloNIDine HCL 0.1 MG TAB PO PRN (14:00)
[2024-04-09] MEDS ORDERED: MECLIZINE HCL 25 MG TAB PO PRN (14:00)
[2024-04-09] MEDS ORDERED: HYDROcodone-ACET 5/325MG TAB PO PRN (14:00)
[2024-04-09 16:07] LABS: Urine Bacteria None Seen /hpf (None Seen)
[2024-04-09 16:35] LABS: Urine Blood Negative /uL (Negative); Urine Clarity Clear (Clear); Urine Color Dark-Yellow (Yellow); Urine Mucus FEW (None Seen); Urine Protein, UAD TRACE (Negative); Urine Urobilinogen Normal (Negative); Urine WBC 5 /hpf (0 - 5); Urine pH 5.5 (5.0-9.0)
--- NOTE | 2024-04-09 16:47 | DVH ---
PROCEDURE: CT CT ANGIO CHEST CONTRAST 04/09/2024 03:24 PM INDICATION:Elevated D-dimer. COMPARISON: CT CT ANGIO CHEST CONTRAST on DOS: 09/18/22, CT ANGIO CHEST CONTRAST on DOS: 04/04/21 TECHNIQUE: Coverage: Thorax IV contrast: Administered Phases: Arterial Multiplanar 3-D Maximum Intensity Projection images (MIP) reconstructions were created by the technkhadar singletary in the coronal and sagittal planes as part of the CT angiography protocol. Adverse events: None Medication laboratory values were reviewed to verify the patient meets criteria for contrast administ ration. All CT scans at this medical facility are performed using dose modulation techniques as appropriate t o a performed exam including the following: Automated exposure control was utilized; adjustment of th e MA and/or KV according to patient size; and use of iterative reconstruction technique. Radiation dose: CTDIvol 27, 24 mGy, DLP 901 mGy*cm. FINDINGS: Cardiovascular: No evidence of acute or chronic pulmonary emboli identified. Aorta is normal in calib er. The heart is .borderline enlarged. Small pericardial effusion Lungs: No focal consolidation. No pleural effusion. No pneumothorax. The airways are patent. Thyroid:Mildly enlarged and heterogeneous thyroid gland. Esophagus: Unremarkable. Lymphatics: No hilar or mediastinal lymphadenopathy. Bones/soft tissues: No acute abnormality. Multilevel degenerative changes of the thoracic spine are n oted. Upper abdomen: No acute abnormality. Changes of gastric sleeve surgery noted. Other: None. IMPRESSION: 1. No evidence of acute pulmonary emboli. 2. No acute cardiopulmonary disease. No evidence of aortic aneurysm or dissection. 3. Multinodular goiter. 4. Mild cardiomegaly and small pericardial effusion.
--- NOTE | 2024-04-09 17:38 | DVHHP2 ---
History of Present Illness Reason for Visit: Generalized weakness History of Present Illness Patient is a 59 years old female with past medical history of asthma, CHF, CVA, High Lipids, HTN, Kidney Stones, and Uterine Fibroids who presented to [facility] ED with complaint of generalized weakness. Patient reports symptoms progressively get worse with abdominal pain, associated nausea, vomiting, dizziness, getting worse that prompted this visit. Patient reports that she was seen last night at [facility] and states that she had a CT scan that showed she had a cyst and a urinary tract infection on levofloxacin, but not been able to take it.. Patient reports that she had bariatric surgery in October 2023 and a revision surgery in December 2023 due to a complication. Patient was seen and evaluated in the ED laboratory data shows WBC 5.3 platelets 241, sodium 140, potassium 3.7, BUN 9, creatinine 0.78, glucose 92, BNP 51.21 D-dimer 0.70, urinalysis negative for urinary tract infection. CT angiography showed evidence of acute pulmonary emboli. Please see medication orders section in the computer. On my assessment, patient denied chest pain, no headache, dizziness, no diaphoresis, no shortness of breath, no nausea, no vomiting, no fever, no chills. Patient was admitted for further evaluation and medical management. Past Medical History Asthma, CHF, CVA, High Lipids, HTN, Kidney Stones, Uterine Fibroids Past Surgical History section Family History Reviewed, noncontributory to the management of this case. Past Social History The patient lives at home, denies smoking, alcohol or illicit drugs abuse. Review of Systems Constitutional: Yes: Weakness; No: Fever, Chills, Sweats, Malaise, Other Eyes: No: Pain, Vision change, Conjunctivae inflammation, Eyelid inflammation, Other, Redness ENT: No: Ear pain, Ear discharge, Nose pain, Nose discharge, Nose congestion, Mouth pain, Mouth swelling, Throat pain, Throat swelling, Other Respiratory: No: Cough, Dry, Shortness of breath, SOB with excertion, Wheezing, Hemoptysis, Pleuritic Pain, Sputum, Wheezing, Other Cardiovascular: No: Chest Pain, Palpitations, Orthopnea, Paroxysmal Noc. Dyspnea, Edema, Lt Headedness, Other Gastrointestinal: Nausea, Vomiting, Abdominal Pain; No: Diarrhea, Constipation, Melena, Hematochezia, Other Genitourinary: No Dysuria, No Frequency, No Incontinence, No Hematuria, No Retention, No Other Musculoskeletal: No: other, neck pain, shoulder pain, arm pain, back pain, hand pain, leg pain, foot pain Skin: No: Rash, Lesions, Jaundice, Bruising, Other Neurological: Other (Dizziness); No: Weakness, Numbness, Incoordination, Change in speech, Confusion, Seizures Allergies: Coded Allergies: Propofol (Verified Allergy, Unknown, 04/02/21) Sulfa Antibiotics (Verified Allergy, Unknown, 04/02/21) Medications Current Medications Medications Dose Ordered Sig/Daniel Route Start Time Stop Time Status Last Admin Dose Admin Aspirin 81 mg DAILY PO 04/10/24 10:00 Carvedilol 3.125 mg Q12HR PO 04/09/24 22:00 Losartan Potassium 100 mg DAILY PO 04/10/24 10:00 Clonidine HCl 0.1 mg Q4HP PRN PO 04/09/24 14:00 Levothyroxine Sodium 25 mcg QAM@0600 PO 04/10/24 06:00 Famotidine 20 mg DAILY IV 04/10/24 10:00 Meclizine HCl 25 mg Q8HPRN PRN PO 04/09/24 14:00 Sodium Chloride 10 ml Q8HR IV 04/09/24 14:00 04/09/24 14:00 10 ML Acetaminophen/ Hydrocodone Bitart 1 tab Q4HP PRN PO 04/09/24 14:00 Ondansetron HCl 4 mg Q4HP PRN IV 04/09/24 14:00 Docusate Sodium 100 mg BIDPRN PRN PO 04/09/24 14:00 Acetaminophen 650 mg Q6HP PRN PO 04/09/24 14:00 Exam Vital Signs Vital Signs Date Time Temp Pulse Resp B/P (MAP) Pulse Ox O2 Delivery O2 Flow Rate FiO2 04/09/24 12:37 71 16 96 Room Air* 0 21 04/09/24 12:37 144/62 (89) 04/09/24 10:56 98.3 General Appearance: Alert, Oriented X3, Cooperative, No acute distress HEENT: Atraumatic, PERRLA, EOMI, Mucous membr. moist/pink Respiratory: Clear to auscultation, Normal air movement Cardiovascular: Regular rate, Normal S1, Normal S2, No murmurs Abdominal: Normal bowel sounds, Soft, No hepatospenomegaly, No masses, Other (Reports tenderness) Extremities: No clubbing, No cyanosis, No edema, Normal pulses, No tenderness/swelling Skin: No rashes, No breakdown, No significant lesion Neuro: Normal speech, Normal tone, Sensation intact, Cranial nerves 3-12 NL, Reflexes 2+, Other (Generalized weakness) Psych/Mental Status: Mental status NL, Mood NL Labs/Xrays Labs Test 04/09/24 16:06 04/09/24 11:05 04/09/24 10:55 Range/Units Urine Color Dark-yellow Yellow Urine Clarity Clear Clear Urine pH 5.5 5.0-9.0 Urine Specific [place] 1.050 H 1.001-1.035 Urine Protein Trace H Negative Urine Ketones 1+ H Negative Urine Blood Negative Negative /uL Urine Nitrite Negative Negative Urine Bilirubin Negative Negative Urine Urobilinogen Normal Negative mg/dL Urine Leukocyte Esterase Negative Negative /uL Urine RBC 6 0 - 4 /hpf Urine WBC 5 0 - 5 /hpf Urine Squamous Epithelial Cells Few <5 /hpf Urine Calcium Oxalate Crystals Few None Seen Urine Bacteria None seen None Seen /hpf Urine Mucus Few None Seen Urine Glucose Normal Normal mg/dL White Blood Count 5.3 4.4-10.8 10^3/uL Red Blood Count 4.75 4.0-5.20 10^6/uL Hemoglobin 14.0 12.2-16.2 g/dL Hematocrit 42.7 36.0-46.0 % Mean Corpuscular Volume 89.9 80.0-100.0 fL Mean Corpuscular Hemoglobin 29.5 28.0-32.0 pg Mean Corpuscular Hemoglobin Concent 32.8 32.0-36.0 g/dL Red Cell Distribution Width 14.2 11.8-14.3 % Platelet Count 241 140-450 10^3/uL Mean Platelet Volume 8.0 6.9-10.8 fL Neutrophils (%) (Auto) 51.1 37.0-80.0 % Lymphocytes (%) (Auto) 38.1 10.0-50.0 % Monocytes (%) (Auto) 8.3 0.0-12.0 % Eosinophils (%) (Auto) 1.4 0.0-7.0 % Basophils (%) (Auto) 1.1 0.0-2.0 % Neutrophils # (Auto) 2.7 1.6-8.6 10 ^3/uL Lymphocytes # (Auto) 2.0 0.4-5.4 10 ^3/uL Monocytes # (Auto) 0.4 0-1.3 10 ^3/uL Eosinophils # (Auto) 0.1 0-0.8 10 ^3/uL Basophils # (Auto) 0.1 0-0.2 10 ^3/uL Nucleated Red Blood Cells 0.1 % D-Dimer, Quantitative 0.70 H 0.0-0.49 mg/L FEU Sodium Level 140 136-145 mmol/L Potassium Level 3.7 3.5-5.1 mmol/L Chloride Level 106 98-107 mmol/L Carbon Dioxide Level 27 20-31 mmol/L Anion Gap 7 5-15 Blood Urea Nitrogen 9 9-23 mg/dL Creatinine 0.78 0.550-1.02 mg/dL Glomerular Filtration Rate Calc 87 >90 mL/min BUN/Creatinine Ratio 11.5 10.0-20.0 Serum Glucose 92 74-106 mg/dL Calcium Level 9.9 8.7-10.4 mg/dL B-Type Natriuretic Peptide 51.21 0-100 pg/mL POC Glucose 92 70-106 mg/dl PATIENT: BIMAL WILDE ACCT: [id number] UNIT: [id number] : 1965 LOC: ER ROOM / BED: / AGE / SEX: 59 / F ADM STATUS: REG ER SERVICE [id number] ORDERING PHYSICIAN: RHETT BROWN DNP PROCEDURE(s): CTACH - CT ANGIO CHEST CONTRAST REASON: Elevated D-dimer ORDER NUMBER(s): [id number], ACCESSION NUMBER(s): [id number] PROCEDURE: CT CT ANGIO CHEST CONTRAST 04/09/2024 03:24 PM INDICATION:Elevated D-dimer. COMPARISON: CT CT ANGIO CHEST CONTRAST on DOS: 09/18/22, CT ANGIO CHEST CONTRAST on DOS: 04/04/21 TECHNIQUE: Coverage: Thorax IV contrast: Administered Phases: Arterial Multiplanar 3-D Maximum Intensity Projection images (MIP) reconstructions were created by the technologist in the coronal and sagittal planes as part of the CT angiography protocol. Adverse events: None Medication laboratory values were reviewed to verify the patient meets criteria for contrast administration. All CT scans at this medical facility are performed using dose modulation techniques as appropriate to a performed exam including the following: Automated exposure control was utilized; adjustment of the MA and/or KV according to patient size; and use of iterative reconstruction technique. Radiation dose: CTDIvol 27, 24 mGy, DLP 901 mGy*cm. FINDINGS: Cardiovascular: No evidence of acute or chronic pulmonary emboli identified. Aorta is normal in caliber. The heart is .borderline enlarged. Small pericardial effusion Lungs: No focal consolidation. No pleural effusion. No pneumothorax. The airways are patent. Thyroid:Mildly enlarged and heterogeneous thyroid gland. Esophagus: Unremarkable. Lymphatics: No hilar or mediastinal lymphadenopathy. Bones/soft tissues: No acute abnormality. Multilevel degenerative changes of the thoracic spine are noted. Upper abdomen: No acute abnormality. Changes of gastric sleeve surgery noted. Other: None. IMPRESSION: 1. No evidence of acute pulmonary emboli. 2. No acute cardiopulmonary disease. No evidence of aortic aneurysm or dissection. 3. Multinodular goiter. 4. Mild cardiomegaly and small pericardial effusion. ORDERING PHYSICIAN: ERICK ANGEL MD PROCEDURE(s): CXRP - CHEST PORTABLE REASON: sob ORDER NUMBER(s): [id number], ACCESSION NUMBER(s): [id number] CHEST RADIOGRAPH Indication:sob Technique: Single frontal view of the chest was obtained COMPARISON: XY CHEST PORTABLE on DOS: 09/17/22 FINDINGS: Lines and Tubes: None Lungs: Clear Pleura: No effusion. No pneumothorax. Cardiomediastinal contours: Unremarkable Bones: Unremarkable IMPRESSION: No acute disease. Assessment/Plan Assessment/Plan Generalized weakness Nausea and vomiting Elevated D-dimer Dizziness and giddiness Acute respiratory distress Plan 1. Admit to telemetry unit 2. Breathing treatment 3. Pain control management 4. Management of fluids and electrolytes 5. Consultation for hospitalist 6. Diagnostic tests CT Angiography 7. DVT prophylaxis on SCDs 8. Repeat labs CBC, CMP in a.m. 9. Continue with current medical management 10. Treatment plan discussed with patient and RN. Patient verbalized understanding. Plan discussed with: Patient, Other (RN) My Orders Orders - RHETT BROWN DNP Procedure Category Date Status Time Aspirin Tablet PHA 04/10/24 In Process 10:00 Carvedilol Tablet PHA 04/09/24 In Process (Coreg Tablet) 22:00 Losartan Tablet PHA 04/10/24 In Process (Cozaar Tablet) 10:00 Clonidine Hcl Tablet PHA 04/09/24 In Process (Catapres Tablet) 14:00 Levothyroxine Tablet PHA 04/10/24 In Process (Synthroid Tablet) 06:00 Famotidine Injection PHA 04/10/24 In Process (Pepcid Injection) 10:00 Meclizine Tablet PHA 04/09/24 In Process (Antivert Tablet) 14:00 Allergies GEENA 04/09/24 In Process 13:56 Code Status CODE 04/09/24 Transmitted 13:56 Sodium Chloride Lock PHA 04/09/24 In Process (Saline Lock Ns) 14:00 Oxygen Per Hour RT 04/09/24 Transmitted 13:56 Hydrocodone-Acet PHA 04/09/24 In Process 5/325mg Tab ([place] 14:00 Ondansetron Hcl PHA 04/09/24 In Process (Zofran) 14:00 Docusate Sodium PHA 04/09/24 In Process Capsule ([place] 14:00 Complete Blood Count LAB 04/10/24 Verified 04:00 Comprehensive LAB 04/10/24 Verified Metabolic Panel 04:00 Cardiac DIET 04/09/24 Transmitted Diet-2gna,Lofat,Lochol Dinner Condition: Serious GEENA 04/09/24 In Process 13:56 Acetaminophen Tablet PHA 04/09/24 In Process (Tylenol Tablet) 14:00 Bedrest With Bathroom GEENA 04/09/24 In Process Privileg 13:56 Sequential GEENA 04/09/[address] In [address] Compression Device Ct Angio Chest CT 04/09/24 Resulted Contrast 14:28 Admit ADMIT 04/09/24 Verified 17:36 Nitroglycerin PHA 04/09/24 Verified Sublingual (Ntrostat 17:45 Morphine Sulfate PHA 04/09/24 Verified Injection 17:45 Notify Md Of Changes [facility] 04/09/24 Verified From Base 17:36 Certified Anesthesiologist Assistant For [facility] 04/09/24 Verified 24 Hours 17:36 Emergency Dysrhythmia [facility] 04/09/24 Verified Protocol 17:36 Rhythm Strips Once [facility] 04/09/24 Verified Every Shift 17:36 Oxygen By Nasal RT 04/09/24 Verified Cannula 17:36 Problem List: (1) Generalized weakness (2) Elevated d-dimer (3) Nausea and vomiting (4) Dizziness and giddiness (5) Acute respiratory distress Date of Service: Apr 09, 2024 Billing Provider: RHETT BROWN DNP Common Visit Codes: [id number] INP/OBS CARE (HIGH) RHETT BROWN DNP Apr 09, 2024 17:38
[2024-04-09] MEDS ORDERED: NITROGLYCERIN 0.4 MG SL TAB SL PRN (17:45)
[2024-04-09] MEDS: IOHEXOL 350 MG/ML 100ML IJ ONE (18:33)
[2024-04-09 19:35] VITALS: PULSE 70; RESP 15; O2SAT 99
[2024-04-09] MEDS: ONDANSETRON HCL 4 MG/2 ML VIAL IV PRN (20:45)
[2024-04-09] MEDS: MORPHINE SULFATE INJ 2 MG/ml SYRG IV PRN (20:46)
[2024-04-09] MEDS: CARVEDILOL 3.125 MG TAB PO SCH (22:18)
[2024-04-09 23:34] VITALS: BP 145/75; PULSE 61; RESP 18; O2SAT 99
[2024-04-10] VITALS (10 sets, daily range): BP systolic 114–159; BP diastolic 58–89; PULSE 68–82; RESP 18–20; TEMP 97.6–98.7; O2SAT 94–99
[2024-04-10] MEDS ORDERED: CETI-120 PO (01:07)
[2024-04-10] MEDS ORDERED: CARV25TA55 PO (01:07)
[2024-04-10] MEDS ORDERED: GABA-339 PO (01:07)
[2024-04-10] MEDS ORDERED: FAMO20TA10 PO (01:07)
[2024-04-10] MEDS ORDERED: CHOL20002 PO (01:07)
[2024-04-10] MEDS: LEVOTHYROXINE SODIUM 25 MCG TAB PO SCH (05:12)
[2024-04-10 06:26] LABS: Basophils # (auto) 0 10 ^3/uL (0-0.2); Basophils % (auto) 0.6 % (0.0-2.0); Eosinophils # (auto) 0 10 ^3/uL (0-0.8); Eosinophils % (auto) 0.4 % (0.0-7.0); Hematocrit 38.4 % (36.0-46.0); Hemoglobin 12.8 g/dL (12.2-16.2); Lymphocytes # (auto) 1.8 10 ^3/uL (0.4-5.4); Lymphocytes % (auto) 36.9 % (10.0-50.0); Mean Corpuscular Hemoglobin 29.7 pg (28.0-32.0); Mean Corpuscular Hgb Conc. 33.3 g/dL (32.0-36.0); Mean Corpuscular Volume 89.3 fL (80.0-100.0); Monocytes # (auto) 0.4 10 ^3/uL (0-1.3); Monocytes % (auto) 7.5 % (0.0-12.0); Neutrophils # (auto) 2.6 10 ^3/uL (1.6-8.6); Neutrophils % (auto) 54.6 % (37.0-80.0); Nucleated Red Blood Cells % 0.1 %; Platelet Count (auto) 227 10^3/uL (140-450); Red Blood Cells 4.29 10^6/uL (4.0-5.20); Red Cell Distribution Width 14.5 % (11.8-14.3); White Blood Cell 4.8 10^3/uL (4.4-10.8)
[2024-04-10 06:30] LABS: Alanine Aminotransferase 16 U/L (7-40); Alkaline Phosphatase 50 U/L (46-116); Anion Gap 7 (5-15); Aspartate Aminotransferase 11 U/L (13-40); BUN/Creatinine Ratio 12.1 (10.0-20.0); Blood Urea Nitrogen 8 mg/dL (9-23); Calcium 9.6 mg/dL (8.7-10.4); Carbon Dioxide 27 mmol/L (20-31); Chloride 107 mmol/L (98-107); Glucose 85 mg/dL (74-106); Sodium 141 mmol/L (136-145)
[2024-04-10 06:31] LABS: Bilirubin, Total 0.4 mg/dL (0.2-1.0); Total Protein 6.5 g/dL (5.7-8.2)
--- NOTE | 2024-04-10 08:43 | ECG ---
[facility] Test Date: 2024-04-09 Test Time: 10:57:08 Pat Name: BIMAL WILDE Department: ER Room: [facility]1T B Gender: F [employer] Physician: DR GARCÍA: 1965 Requested By: ERICK ANGEL Order Number: [id number] Reading MD: Jeb Torres Measurements Intervals [place] Rate: 77 P: 80 OR: 256 QRS: -1 QRSD: 89 T: 29 QT: 401 QTc: 454 Interpretive Statements Sinus rhythm Prolonged OR interval Low voltage, precordial leads Minimal ST depression Baseline wander in lead(s) I,III,aVL,aVF,V1 Electronically Signed On 04-11-2024 11:53:24 PST by Jeb Torres Please click the below link to view image of tracing.
[2024-04-10] MEDS: FAMOTIDINE (10MG/ML) 2ML VL IV SCH (09:53)
[2024-04-10] MEDS: ASPirin 81 mg TAB PO SCH (09:54)
[2024-04-10] MEDS: LOSARTAN POTASSIUM 50 MG TAB PO SCH (09:56)
--- NOTE | 2024-04-10 13:52 | DVHPN2 ---
Reviewed: Care Plan, H&P, Labs, Medications, Previous Orders, Radiology Changes from previous H/P or p: No Changes Eyes: No Pain, No Vision change, No Conjunctivae inflammation, No Eyelid inflammation, No Other, No Redness ENT: No Ear pain, No Ear discharge, No Nose pain, No Nose discharge, No Nose congestion, No Mouth pain, No Mouth swelling, No Throat pain, No Throat swelling, No Other Cardiovascular: No Chest Pain, No Palpitations, No Orthopnea, No Paroxysmal Noc. Dyspnea, No Edema, No Lt Headedness, No Other Respiratory: No Cough, No Dry, No Shortness of breath, No SOB with excertion, No Wheezing, No Hemoptysis, No Pleuritic Pain, No Sputum, No Other Gastrointestinal: Nausea, Vomiting, Abdominal Pain; No Diarrhea, No Constipation, No Melena, No Hematochezia, No Other Genitourinary: No Dysuria, No Frequency, No Incontinence, No Hematuria, No Retention, No Other Musculoskeletal: No other, No neck pain, No shoulder pain, No arm pain, No back pain, No hand pain, No leg pain, No foot pain Skin: No Rash, No Lesions, No Jaundice, No Bruising, No Other Objective Vitals Vital Signs Date Time Temp Pulse Resp B/P (MAP) Pulse Ox O2 Delivery O2 Flow Rate FiO2 04/10/24 10:53 74 146/89 04/10/24 08:53 98.0 19 94 98.0 04/10/24 08:10 Nasal Cannula* 2 28 Medications Current Medications Medications Dose Ordered Sig/Daniel Route Start Time Stop Time Status Last Admin Dose Admin Aspirin 81 mg DAILY PO 04/10/24 10:00 04/10/24 09:54 81 MG Carvedilol 3.125 mg Q12HR PO 04/09/24 22:00 04/10/24 09:53 3.125 MG Losartan Potassium 100 mg DAILY PO 04/10/24 10:00 Clonidine HCl 0.1 mg Q4HP PRN PO 04/09/24 14:00 Levothyroxine Sodium 25 mcg QAM@0600 PO 04/10/24 06:00 04/10/24 05:12 25 MCG Famotidine 20 mg DAILY IV 04/10/24 10:00 04/10/24 09:53 20 MG Meclizine HCl 25 mg Q8HPRN PRN PO 04/09/24 14:00 Sodium Chloride 10 ml Q8HR IV 04/09/24 14:00 04/10/24 13:24 10 ML Acetaminophen/ Hydrocodone Bitart 1 tab Q4HP PRN PO 04/09/24 14:00 Ondansetron HCl 4 mg Q4HP PRN IV 04/09/24 14:00 04/09/24 20:45 4 MG Docusate Sodium 100 mg BIDPRN PRN PO 04/09/24 14:00 Acetaminophen 650 mg Q6HP PRN PO 04/09/24 14:00 Nitroglycerin 0.4 mg Q5MINP PRN SL 04/09/24 17:45 Morphine Sulfate 2 mg Q30M PRN IV 04/09/24 17:45 04/09/24 20:46 2 MG Laboratory Results Laboratory Tests 04/10/24 04:45 Chemistry Test 04/10/24 04:45 Albumin 4.0 g/dL (3.2-4.8) Calcium Level 9.6 mg/dL (8.7-10.4) Total Protein 6.5 g/dL (5.7-8.2) LFT Test 04/10/24 04:45 Alanine Aminotransferase (ALT) 16 U/L (7-40) Alkaline Phosphatase 50 U/L (46-116) Aspartate Amino Transferase (AST) 11 U/L (13-40) L Total Bilirubin 0.4 mg/dL (0.2-1.0) Urinalysis Test 04/09/24 16:06 Urine Color Dark-yellow (Yellow) Urine Clarity Clear (Clear) Urine pH 5.5 (5.0-9.0) Urine Specific [place] 1.050 (1.001-1.035) Urine Protein Trace (Negative) H Urine Ketones 1+ (Negative) H Urine Blood Negative /uL (Negative) Urine Nitrite Negative (Negative) Urine Bilirubin Negative (Negative) Urine Urobilinogen Normal mg/dL (Negative) Urine Leukocyte Esterase Negative /uL (Negative) Urine RBC 6 /hpf (0 - 4) Urine WBC 5 /hpf (0 - 5) Urine Squamous Epithelial Cells Few /hpf (<5) Urine Calcium Oxalate Crystals Few (None Seen) Urine Bacteria None seen /hpf (None Seen) Urine Mucus Few (None Seen) Urine Glucose Normal mg/dL (Normal) Labs and/or images reviewed: Labs reviewed by me, Image(s) reviewed by me Assessment/Plan Assessment/Plan Generalized weakness Nausea and vomiting hypertension Hypothyroidism History of bariatric surgery with complications October 2023 Elevated D-dimer Dizziness and giddiness Acute respiratory distress Time Spent 55 minutes Patient is full code Advanced care planning time 20 minutes Plan discussed with: Patient Date of Service: Apr 10, 2024 Billing Provider: ZURDO GOLDSTEIN MD Common Visit Codes: [id number] INP/OBS CARE(HIGH) Secondary Visit Codes: [id number] CARE PLAN 30 MINUTES ZURDO GOLDSTEIN MD Apr 10, 2024 13:52
--- NOTE | 2024-04-10 15:08 | DVH ---
CT ABDOMEN AND PELVIS WITHOUT CONTRAST CLINICAL HISTORY: Abdominal pain nausea and vomiting TECHNIQUE: Multidetector CT of the abdomen was performed from lung bases to pubic symphysis. Imaging was performed without IV contrast. Axial, coronal and sagittal multiplanar reformats were obtained fr om the axial data set by the technologist. Radiation optimization: All CT scans at this facility use at least one of these dose optimization homa hniques: automated exposure control mA and/or kV adjustment per patient size (includes targeted exam s where dose is matched to clinical indication) or iterative reconstruction. Radiation Dose Information: CT Dose: CTDI volume is 22.59 mGy. Dose-length product is 1265.97 mGy*cm Comparison: CT CT AB PEL WO CON-NO ORAL OR IV on DOS: 03/14/24 FINDINGS: [Findings] Evaluation of the abdominal viscera is limited without intravenous contrast. There are postsurgical changes related to gastric bypass surgery. There is hyperdense sludge filling the gallbladder. The liver, pancreas, kidneys, adrenal glands, and spleen appear within normal limi ts. There is no gross evidence of abdominal lymphadenopathy. There is no free fluid or free air. The small and large bowel loops demonstrate normal caliber and appear within normal limits. The abdominal aorta and IVC appear within normal limits. The uterus grossly appears unremarkable. There is a 2.7 cm oval fatty lesion in the right ovary michelle tible with a dermoid. Bladder appears within normal limits for the degree of distention. There is no free fluid within the pelvis. Lung bases are clear. There is no acute osseous abnormality. There are moderate degenerative disc changes of the L5-S1 leve l. IMPRESSION: 1. There is no acute process in the abdomen and pelvis.. 2. Hyperdense sludge filling the gallbladder. 3. 2.7 cm right ovarian dermoid. HS:Y
[2024-04-10] MEDS: METOCLOPRAMIDE HCL 5MG/ml INJ 2ml VIAL IV SCH (16:53)
[2024-04-10] MEDS: MORPHINE SULFATE INJ 2 MG/ml SYRG IV PRN (17:32)
[2024-04-10] MEDS: DOCUSATE SOD 100 MG CAP PO PRN (21:35)
[2024-04-11 05:35] VITALS: BP 149/70; PULSE 74; RESP 19; TEMP 98.2; O2SAT 98
[2024-04-11 08:05] VITALS: PULSE 67
[2024-04-11 08:06] VITALS: O2SAT 94
[2024-04-11 09:00] VITALS: BP 156/81; PULSE 72; RESP 18; TEMP 98.1; O2SAT 97
--- NOTE | 2024-04-11 12:08 | DVHPN2 ---
Reviewed: Care Plan, H&P, Labs, Medications, Previous Orders, Radiology Changes from previous H/P or p: No Changes Eyes: No Pain, No Vision change, No Conjunctivae inflammation, No Eyelid inflammation, No Other, No Redness ENT: No Ear pain, No Ear discharge, No Nose pain, No Nose discharge, No Nose congestion, No Mouth pain, No Mouth swelling, No Throat pain, No Throat swelling, No Other Cardiovascular: No Chest Pain, No Palpitations, No Orthopnea, No Paroxysmal Noc. Dyspnea, No Edema, No Lt Headedness, No Other Respiratory: No Cough, No Dry, No Shortness of breath, No SOB with excertion, No Wheezing, No Hemoptysis, No Pleuritic Pain, No Sputum, No Other Gastrointestinal: Nausea, Vomiting, Abdominal Pain; No Diarrhea, No Constipation, No Melena, No Hematochezia, No Other Genitourinary: No Dysuria, No Frequency, No Incontinence, No Hematuria, No Retention, No Other Musculoskeletal: No other, No neck pain, No shoulder pain, No arm pain, No back pain, No hand pain, No leg pain, No foot pain Skin: No Rash, No Lesions, No Jaundice, No Bruising, No Other Objective Vitals Vital Signs Date Time Temp Pulse Resp B/P (MAP) Pulse Ox O2 Delivery O2 Flow Rate FiO2 04/11/24 10:08 78 133/71 04/11/24 09:00 98.1 18 97 98.1 04/11/24 08:06 Nasal Cannula* 2 28 Intake/Output Intake and Output 04/11/24 07:00 Intake Total 1500 ml Balance 1500 ml Intake Oral 1500 ml # Voids 9 Medications Current Medications Medications Dose Ordered Sig/Daniel Route Start Time Stop Time Status Last Admin Dose Admin Aspirin 81 mg DAILY PO 04/10/24 10:00 04/11/24 09:08 81 MG Carvedilol 3.125 mg Q12HR PO 04/09/24 22:00 04/11/24 09:08 3.125 MG Losartan Potassium 100 mg DAILY PO 04/10/24 10:00 04/11/24 09:07 100 MG Clonidine HCl 0.1 mg Q4HP PRN PO 04/09/24 14:00 Levothyroxine Sodium 25 mcg QAM@0600 PO 04/10/24 06:00 04/11/24 06:08 25 MCG Famotidine 20 mg DAILY IV 04/10/24 10:00 04/11/24 09:09 20 MG Meclizine HCl 25 mg Q8HPRN PRN PO 04/09/24 14:00 Sodium Chloride 10 ml Q8HR IV 04/09/24 14:00 04/11/24 06:08 10 ML Ondansetron HCl 4 mg Q4HP PRN IV 04/09/24 14:00 04/09/24 20:45 4 MG Docusate Sodium 100 mg BIDPRN PRN PO 04/09/24 14:00 04/10/24 21:35 100 MG Acetaminophen 650 mg Q6HP PRN PO 04/09/24 14:00 Nitroglycerin 0.4 mg Q5MINP PRN SL 04/09/24 17:45 Morphine Sulfate 2 mg Q30M PRN IV 04/09/24 17:45 04/11/24 01:49 2 MG Metoclopramide HCl 10 mg Q8H IV 04/10/24 17:00 04/11/24 09:09 10 MG Morphine Sulfate 2 mg Q4HPRN PRN IV 04/10/24 14:30 04/10/24 17:32 2 MG Laboratory Results Laboratory Tests 04/10/24 04:45 Urinalysis Test 04/09/24 16:06 Urine Color Dark-yellow (Yellow) Urine Clarity Clear (Clear) Urine pH 5.5 (5.0-9.0) Urine Specific [place] 1.050 (1.001-1.035) Urine Protein Trace (Negative) H Urine Ketones 1+ (Negative) H Urine Blood Negative /uL (Negative) Urine Nitrite Negative (Negative) Urine Bilirubin Negative (Negative) Urine Urobilinogen Normal mg/dL (Negative) Urine Leukocyte Esterase Negative /uL (Negative) Urine RBC 6 /hpf (0 - 4) Urine WBC 5 /hpf (0 - 5) Urine Squamous Epithelial Cells Few /hpf (<5) Urine Calcium Oxalate Crystals Few (None Seen) Urine Bacteria None seen /hpf (None Seen) Urine Mucus Few (None Seen) Urine Glucose Normal mg/dL (Normal) Labs and/or images reviewed: Labs reviewed by me, Image(s) reviewed by me Assessment/Plan Assessment/Plan Generalized weakness Nausea and vomiting GI consult appreciated no further recommendation Hypertension Hypothyroidism History of bariatric surgery with complications October 2023 Elevated D-dimer PE ruled out Dizziness and giddiness Acute respiratory distress Time Spent 55 minutes Patient is full code Advanced care planning time 20 minutes Plan discussed with: Patient My Orders Orders - ZURDO GOLDSTEIN MD Procedure Category Date Status Time Ct Ab Pel Wo Con-No CT 04/10/24 Resulted Oral Or Iv 14:16 * [facility] [employer] CONS 04/10/24 Transmitted 14:16 Metoclopramide PHA 04/10/24 In Process Injection (Reglan 17:00 Morphine Sulfate PHA 04/10/24 In Process Injection 14:30 Date of Service: Apr 11, 2024 Billing Provider: ZURDO GOLDSTEIN MD Common Visit Codes: [id number] INP/OBS CARE(HIGH) ZURDO GOLDSTEIN MD Apr 11, 2024 12:08
[2024-04-11] MEDS ORDERED: METO-281 PO (12:09)
--- NOTE | 2024-04-11 12:13 | DVHDS2 ---
Discharge Summary Date of Admission Apr 09, 2024 at 17:36 Date of Discharge: Apr 11, 2024 Admitting Diagnosis Abdominal pain and nausea Wounds: None Labs/Diagnostic Data: Laboratory Results Test 04/10/24 04:45 04/09/24 16:06 04/09/24 11:05 04/09/24 10:55 White Blood Count 4.8 10^3/uL (4.4-10.8) Red Blood Count 4.29 10^6/uL (4.0-5.20) Hemoglobin 12.8 g/dL (12.2-16.2) Hematocrit 38.4 % (36.0-46.0) Mean Corpuscular Volume 89.3 fL (80.0-100.0) Mean Corpuscular Hemoglobin 29.7 pg (28.0-32.0) Mean Corpuscular Hemoglobin Concent 33.3 g/dL (32.0-36.0) Red Cell Distribution Width 14.5 % (11.8-14.3) Platelet Count 227 10^3/uL (140-450) Mean Platelet Volume 8.2 fL (6.9-10.8) Neutrophils (%) (Auto) 54.6 % (37.0-80.0) Lymphocytes (%) (Auto) 36.9 % (10.0-50.0) Monocytes (%) (Auto) 7.5 % (0.0-12.0) Eosinophils (%) (Auto) 0.4 % (0.0-7.0) Basophils (%) (Auto) 0.6 % (0.0-2.0) Neutrophils # (Auto) 2.6 10 ^3/uL (1.6-8.6) Lymphocytes # (Auto) 1.8 10 ^3/uL (0.4-5.4) Monocytes # (Auto) 0.4 10 ^3/uL (0-1.3) Eosinophils # (Auto) 0 10 ^3/uL (0-0.8) Basophils # (Auto) 0 10 ^3/uL (0-0.2) Nucleated Red Blood Cells 0.1 % Sodium Level 141 mmol/L (136-145) Potassium Level 4.0 mmol/L (3.5-5.1) Chloride Level 107 mmol/L (98-107) Carbon Dioxide Level 27 mmol/L (20-31) Anion Gap 7 (5-15) Blood Urea Nitrogen 8 mg/dL (9-23) Creatinine 0.66 mg/dL (0.550-1.02) Glomerular Filtration Rate Calc 101 mL/min (>90) BUN/Creatinine Ratio 12.1 (10.0-20.0) Serum Glucose 85 mg/dL (74-106) Calcium Level 9.6 mg/dL (8.7-10.4) Total Bilirubin 0.4 mg/dL (0.2-1.0) Aspartate Amino Transferase (AST) 11 U/L (13-40) Alanine Aminotransferase (ALT) 16 U/L (7-40) Alkaline Phosphatase 50 U/L (46-116) Total Protein 6.5 g/dL (5.7-8.2) Albumin 4.0 g/dL (3.2-4.8) Urine Color Dark-yellow (Yellow) Urine Clarity Clear (Clear) Urine pH 5.5 (5.0-9.0) Urine Specific [place] 1.050 (1.001-1.035) Urine Protein Trace (Negative) Urine Ketones 1+ (Negative) Urine Blood Negative /uL (Negative) Urine Nitrite Negative (Negative) Urine Bilirubin Negative (Negative) Urine Urobilinogen Normal mg/dL (Negative) Urine Leukocyte Esterase Negative /uL (Negative) Urine RBC 6 /hpf (0 - 4) Urine WBC 5 /hpf (0 - 5) Urine Squamous Epithelial Cells Few /hpf (<5) Urine Calcium Oxalate Crystals Few (None Seen) Urine Bacteria None seen /hpf (None Seen) Urine Mucus Few (None Seen) Urine Glucose Normal mg/dL (Normal) D-Dimer, Quantitative 0.70 mg/L FEU (0.0-0.49) B-Type Natriuretic Peptide 51.21 pg/mL (0-100) POC Glucose 92 mg/dl (70-106) Other Laboratory Tests 04/10/24 04:45 Brief Hx & Hospital Course: 59-year-old female with a history of hypertension hypothyroidism status post bariatric surgery with the complications in October 2023 came in complaining of nausea and vomiting generalized weakness and dizziness D-dimer was elevated PE ruled out CT abdomen pelvis without contrast is negative for any acute pathology seen by GI LEANDRO Goldstein. Consult him management. Patient feels better with less nausea no pain being discharged home on Reglan she will continue Pepcid and follow up with the primary Dr Tolerating regular diet at the time of discharge Consults/Reason for consult GI Dr. Natalee Payne Operations or Procedures CT abdomen pelvis without contrast Condition at Discharge: Fair Final Diagnosis/Problems List Generalized weakness Nausea and vomiting GI consult appreciated no further recommendation Hypertension Hypothyroidism History of bariatric surgery with complications October 2023 Elevated D-dimer PE ruled out Dizziness and giddiness Discharge Disposition: Home Discharge Instruct/Medications Diet: Cardiac 2g Na,low cholest Activity: Light activity Follow Up/Referral: Follow up with your primary Dr Resume all previous home medications Medications: Reglan 10 mg p.o. b.i.d. number 30 transmitted to the pharmacy 35 (Time taken for discharge summary 35 minutes) Discharge Statement: "Patient was advised to return to the ER or call 911 if any headaches, dizziness, shortness of breath, chest pain, abdominal pain, bleeding, fevers, or worsening of medical condition. Patient was counseled about treatment plan, medications, possible side effects, patientverbalized understanding. All questions were answered to the best of my ability. This discharge took greater then 30 minutes in planning, reviewing documentation, counseling the patient, and discussing with other team members." ASSESSMENT ASSESSMENT Hospital Course Uneventful Assessment Generalized weakness Nausea and vomiting GI consult appreciated no further recommendation Hypertension Hypothyroidism History of bariatric surgery with complications October 2023 Elevated D-dimer PE ruled out Dizziness and giddiness Date of Service: Apr 11, 2024 Billing Provider: ZURDO GOLDSTEIN MD Common Visit Codes: [id number]/OBS DISCH DAY >30min ZURDO GOLDSTEIN MD Apr 11, 2024 12:13
[2024-04-11] MEDS: LACTULOSE 20Gm/30ML SOLN PO ONE (12:15)
[2024-04-11] MEDS: diphenhdrAMINE HCL 25 MG CAP PO PRN (12:15)
--- NOTE | 2024-04-11 12:51 | DVHINCON2 ---
GI Consult Consult Note GI consult note Date of Consultation: 04/11/2024 Chief Complaint: Abdominal pain, nausea and vomiting Referring Physician: Dr. Dorian Goldstein H&P: 59-year-old female admitted with abdominal pain, nausea and vomiting Patient had pain in right upper quadrant radiating to her back, now complaining of left lower quadrant pain Patient has nausea and vomiting, no hematemesis Patient has history of constipation, last bowel movement this a.m., no melena or red blood in stool SP colonoscopy two years ago, diagnosed hemorrhoids SP EGD six months ago unsure about results Patient is SP bariatric sleeve September 2023, with multiple hospitalizations after this, where patient underwent surgery again with bariatric sleeve reversal and gastric bypass Patient admits that Reglan is helping her. And tolerating a cardiac diet Past Medical History: Asthma, CHF, CVA, High Lipids, HTN, Kidney Stones Past Surgical History: , uterine fibroids Social History: NO smoking, drinking ETOH and use of illegal drugs. Family History: Heart disease Review of Systems: Constitutional: no fever, chill, weight loss HEENT: no eye pain, no hearing loss, no oral lesion, no scleral icterus Heart: no chest pain, no chest pressure Lung: no cough, no dyspnea with exertion Abdomen: see HPI Physical exam: General: NAD, AAOX3 Chest: lung rivers clear to auscultation Heart: RRR, no murmur Abdomen: Mild left side tenderness to palpation, +BS Labs: Labs Test 04/10/24 04:45 04/09/24 16:06 04/09/24 11:05 04/09/24 10:55 Range/Units White Blood Count 4.8 4.4-10.8 10^3/uL Red Blood Count 4.29 4.0-5.20 10^6/uL Hemoglobin 12.8 12.2-16.2 g/dL Hematocrit 38.4 # 36.0-46.0 % Mean Corpuscular Volume 89.3 80.0-100.0 fL Mean Corpuscular Hemoglobin 29.7 28.0-32.0 pg Mean Corpuscular Hemoglobin Concent 33.3 32.0-36.0 g/dL Red Cell Distribution Width 14.5 H 11.8-14.3 % Platelet Count 227 140-450 10^3/uL Mean Platelet Volume 8.2 6.9-10.8 fL Neutrophils (%) (Auto) 54.6 37.0-80.0 % Lymphocytes (%) (Auto) 36.9 10.0-50.0 % Monocytes (%) (Auto) 7.5 0.0-12.0 % Eosinophils (%) (Auto) 0.4 0.0-7.0 % Basophils (%) (Auto) 0.6 0.0-2.0 % Neutrophils # (Auto) 2.6 1.6-8.6 10 ^3/uL Lymphocytes # (Auto) 1.8 0.4-5.4 10 ^3/uL Monocytes # (Auto) 0.4 0-1.3 10 ^3/uL Eosinophils # (Auto) 0 0-0.8 10 ^3/uL Basophils # (Auto) 0 0-0.2 10 ^3/uL Nucleated Red Blood Cells 0.1 % Sodium Level 141 136-145 mmol/L Potassium Level 4.0 3.5-5.1 mmol/L Chloride Level 107 98-107 mmol/L Carbon Dioxide Level 27 20-31 mmol/L Anion Gap 7 5-15 Blood Urea Nitrogen 8 L 9-23 mg/dL Creatinine 0.66 0.550-1.02 mg/dL Glomerular Filtration Rate Calc 101 >90 mL/min BUN/Creatinine Ratio 12.1 10.0-20.0 Serum Glucose 85 74-106 mg/dL Calcium Level 9.6 8.7-10.4 mg/dL Total Bilirubin 0.4 0.2-1.0 mg/dL Aspartate Amino Transferase (AST) 11 L 13-40 U/L Alanine Aminotransferase (ALT) 16 7-40 U/L Alkaline Phosphatase 50 46-116 U/L Total Protein 6.5 5.7-8.2 g/dL Albumin 4.0 3.2-4.8 g/dL Urine Color Dark-yellow Yellow Urine Clarity Clear Clear Urine pH 5.5 5.0-9.0 Urine Specific [place] 1.050 H 1.001-1.035 Urine Protein Trace H Negative Urine Ketones 1+ H Negative Urine Blood Negative Negative /uL Urine Nitrite Negative Negative Urine Bilirubin Negative Negative Urine Urobilinogen Normal Negative mg/dL Urine Leukocyte Esterase Negative Negative /uL Urine RBC 6 0 - 4 /hpf Urine WBC 5 0 - 5 /hpf Urine Squamous Epithelial Cells Few <5 /hpf Urine Calcium Oxalate Crystals Few None Seen Urine Bacteria None seen None Seen /hpf Urine Mucus Few None Seen Urine Glucose Normal Normal mg/dL D-Dimer, Quantitative 0.70 H 0.0-0.49 mg/L FEU B-Type Natriuretic Peptide 51.21 0-100 pg/mL POC Glucose 92 70-106 mg/dl Imaging: CT abdomen pelvis IMPRESSION: 1. There is no acute process in the abdomen and pelvis.. 2. Hyperdense sludge filling the gallbladder. 3. 2.7 cm right ovarian dermoid. Assessment: Abdominal pain improving Nausea and vomiting Improving Status post gastric bypass Plan: Discussed with Dr. Elmer Felton and famotidine Stool softener. Lactulose if needed Conservative management recommended at this time We will continue to follow-up with the patient Thank you for this consult Date of Service: Apr 11, 2024 Billing Provider: ROSSY GOLDSTEIN Common Visit Codes: CONSULT ONLY Consultation Codes: [id number] CONSULT <45MIN ROSSY GOLDSTEIN Apr 11, 2024 12:51
[2024-04-11 14:26] VITALS: BP 133/71; PULSE 78; TEMP 36.7
== END 2024-04-11 14:50 | disposition home or self-care (01) | DRG 243 ==
LOC: ER 10:40 → TELE 17:36 → TELE-WESTW 17:38
PROVIDERS: ADMIT Nurse Practitioner Family; ATTEND Family Medicine
DX: K21.9 Gastro-esophageal reflux disease without esophagitis (principal); I11.0 Hypertensive heart disease with heart failure; I50.9 Heart failure, unspecified; E03.9 Hypothyroidism, unspecified; I16.0 Hypertensive urgency; R06.03 Acute respiratory distress; J45.909 Unspecified asthma, uncomplicated; Z98.84 Bariatric surgery status; Z87.442 Personal history of urinary calculi; Z86.73 Personal history of transient ischemic attack (TIA), and cerebral infarction without residual deficits; Z98.891 History of uterine scar from previous surgery; Z79.82 Long term (current) use of aspirin; Z79.899 Other long term (current) drug therapy; Z88.2 Allergy status to sulfonamides; Z88.8 Allergy status to other drugs, medicaments and biological substances; E66.01 Morbid (severe) obesity due to excess calories; Z68.41 Body mass index [BMI] 40.0-44.9, adult
CPT/HCPCS: 36415; 71045; 71275; 74176; 80048; 80053; 81001; 82962; 83880; 85025; 85379; 93005; 96374; 96376; 99291; G0378; J2405; J3490; J7042

== ENCOUNTER 2025-03-05 21:01 | Inpatient (IN) | payer MEDICAID ==
[~2025-03-05] VITALS: Ht 157.5 cm; Wt 90.8 kg
[~2025-03-05 21:01] MED LIST changes: +CARV25TA55 PO; -CARV3.1240 PO; +CETI-120 PO; +CHOL20002 PO; +FAMO20TA10 PO; -FURO20TA3 PO; +GABA-339 PO; -HYDR-4902 PO; -LOSA-535 PO; -METH-1182 PO; +METO-281 PO; -OMEP-434 PO
--- NOTE | 2025-03-05 22:51 | ED.PDOC ---
History of Present Illness HPI Comments 60-year-old female with a history of hyerotension, stroke twice, right upper extremity DVT, presents to the ER with a chief complaint of right lower flank pain for the past 1 week. Patient reports crampy abdominal pain located in the right lower quadrant, radiating to the groin, associated nausea but denies v omiting, pain is intermittent, patient reports chills but denies fever at this time. Patient seen and examined, right lower quadrant is tender to examination. CT abdomen shows right adnexal 2.3 cm fat containing mass. Chief Complaint: Flank Pain Time Seen by MD: 21:16 Primary Care Provider: unknown Allergies: Coded Allergies: Propofol (Verified Allergy, Unknown, 04/02/21) Sulfa Antibiotics (Verified Allergy, Unknown, 04/02/21) Home Meds Active Scripts Metoclopramide Hcl (Reglan) 10 Mg Tab, 10 MG PO BID, #30 TAB Prov:ZURDO GOLDSTEIN MD 04/11/24 Reported Medications Gabapentin (Gabapentin) 600 Mg Tab, 1 TAB PO BID 04/10/24 Cetirizine HCl (Cetirizine Hydrochloride) 10 Mg Tab, 1 TAB PO DAILY 04/10/24 Carvedilol (Carvedilol) 25 Mg Tab, 1 TAB PO BID 04/10/24 Cholecalciferol (VITAMIN D3) 2,000 Unit Tab, 50 MCG PO DAILY 04/10/24 Famotidine (PEPCID TABLET) 20 Mg Tb, 1 TAB PO BID 04/10/24 Aspirin (Aspirin Low Dose) 81 Mg Chw, 81 MG PO DAILY, TAB.CHEW 03/24/22 Levothyroxine Sodium (Synthroid) 25 Mcg Tab, 50 MCG PO DAILY, TAB 03/24/22 Mode of Arrival: Ambulatory Past Medical History PAST MEDICAL HISTORY: Asthma, CHF, CVA, High Lipids, HTN, Kidney Stones Surgical History: [employer] History: Uterine Fibroids Family History Family History: Family hx of heart [place] Social History Smoker: Non-Smoker Alcohol: Denies ETOH Use Drugs: Denies Drug Use Lives In: Home Constitutional: reports: chills, fatigue EENTM: denies: blurred vision, double vision, ear bleeding, ear discharge, ear drainage, ear pain, ear ringing, eye pain, eye redness, hearing loss, mouth pain, mouth swelling, nasal discharge, nose bleeding, nose congestion, nose pain, photophobia, tearing, throat pain, throat swelling, voice changes, others Respiratory: denies: cough, hemoptysis, orthopnea, SOB at rest, shortness of breath, SOB with excertion, stridor, wheezing, others Cardiovascular: denies: chest pain, dizzy spells, diaphoresis, Dyspnea on exertion, edema, irregular heart beat, left arm pain, lightheadedness, palpitations, PND, syncope, others Gastrointestinal: reports: abdominal pain, nausea, poor appetite; denies: abdomen distended, blood streaked bowels, constipated, diarrhea, dysphagia, difficulty swallowing, hematemesis, melena, poor fluid intake, rectal bleeding, rectal pain, vomiting, others Genitourinary: denies: abnormal vagina bleeding, burning, dyspareunia, dysuria, flank pain, frequency, hematuria, incontinence, pain, , vagina discharge, urgency, others Neurological: denies: dizziness, fainting, headache, left sided numbness, left sided weakness, numbness, paresthesia, pre-existing deficit, right sided numbness, right sided weakness, seizure, speech problems, tingling, tremors, weakness, others Musculoskeletal: denies: back pain, gout, joint pain, joint swelling, muscle pain, muscle stiffness, neck pain, others Integumetry: denies: bruises, change in color, change in hair/nails, dryness, laceration, lesions, lumps, rash, wounds, others Hematologic/Lymphatic: denies: anemia, blood clots, easy bleeding, easy bruising, swollen glands, others Endocrine: denies: excessive hunger, excessive sweating, excessive thirst, excessive urination, flushing, intolerance to cold, intolerance to heat, unexplained weight gain, unexplained weight loss, others Psychiatric: denies: anxiety, bipolar disorder, depression, hopeless, panic disorder, schizophrenia, sleepless, suicidal, others Physical Exam General Appearance: No Apparent Distress, Normal HEENT: Normal ENT Inspection, Pharynx Normal, TMs Normal Neck: Full Range of Motion, Non-Tender, Normal, Normal Inspection Respiratory: Chest Non-Tender, Lungs Clear, No Accessory Muscle Use, No Respiratory Distress, Normal Breath Sounds Cardiovascular: No Edema, No JVD, No Murmur, No Gallop, Normal Peripheral Pulses, Regular Rate/Rhythm Breast Exam: Deferred Gastrointestinal: No Organomegaly, No Pulsatile Mass, Normal Bowel Sounds, RUQ, Soft, Tenderness Genitalia: Deferred Pelvic: Deferred Rectal: Deferred Extremities: No calf tenderness, Normal capillary refill, Normal inspection, Normal range of motion, Non-tender, No pedal edema Musculoskeletal : Apperance: Normal Neurologic: Alert, 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 Was a procedure done?: No Differential Dx Considerations may include: Pyelonephritis/UTI/nephrolithiasis/ X-Ray, Labs, Meds, VS Vital Signs Date Time Temp Pulse Resp B/P (MAP) Pulse Ox O2 Delivery O2 Flow Rate FiO2 03/06/25 00:30 98.3 65 18 148/86 (106) 95 98.3 03/05/25 21:03 97.8 69 20 144/71 96 97.8 Lab Test 03/05/25 23:14 03/05/25 23:02 Range/Units Urine Color Yellow Yellow Urine Clarity Clear Clear Urine pH 5.5 5.0-9.0 Urine Specific [place] 1.031 1.001-1.035 Urine Protein Negative Negative Urine Ketones Trace Negative Urine Blood Negative Negative /uL Urine Nitrite Negative Negative Urine Bilirubin Negative Negative Urine Urobilinogen Normal Negative mg/dL Urine Leukocyte Esterase Trace Negative /uL Urine RBC 5 0 - 4 /hpf Urine Microscopic WBC 3 0-5 /HPF Urine Squamous Epithelial Cells Few <5 /hpf Urine Bacteria None seen None Seen /hpf Urine Mucus Few None Seen Urine Glucose Normal Normal mg/dL Urine Test Negative Negative White Blood Count 5.7 4.4-10.8 10^3/uL Red Blood Count 4.68 4.0-5.20 10^6/uL Hemoglobin 14.1 12.2-16.2 g/dL Hematocrit 43.2 36.0-46.0 % Mean Corpuscular Volume 92.4 80.0-100.0 fL Mean Corpuscular Hemoglobin 30.1 28.0-32.0 pg Mean Corpuscular Hemoglobin Concent 32.5 32.0-36.0 g/dL Red Cell Distribution Width 14.7 H 11.8-14.3 % Platelet Count 216 140-450 10^3/uL Mean Platelet Volume 7.2 6.9-10.8 fL Neutrophils (%) (Auto) 45.3 37.0-80.0 % Lymphocytes (%) (Auto) 46.8 10.0-50.0 % Monocytes (%) (Auto) 6.0 0.0-12.0 % Eosinophils (%) (Auto) 1.0 0.0-7.0 % Basophils (%) (Auto) 0.9 0.0-2.0 % Neutrophils # (Auto) 2.6 1.6-8.6 10 ^3/uL Lymphocytes # (Auto) 2.7 0.4-5.4 10 ^3/uL Monocytes # (Auto) 0.3 0-1.3 10 ^3/uL Eosinophils # (Auto) 0.1 0-0.8 10 ^3/uL Basophils # (Auto) 0 0-0.2 10 ^3/uL Nucleated Red Blood Cells 0.1 % Sodium Level 148 H 136-145 mmol/L Potassium Level 4.6 3.5-5.1 mmol/L Chloride Level 109 H 98-107 mmol/L Carbon Dioxide Level 29 20-31 mmol/L Anion Gap 10 5-15 Blood Urea Nitrogen 7 L 9-23 mg/dL Creatinine 0.79 0.550-1.02 mg/dL Glomerular Filtration Rate Calc 86 >90 mL/min BUN/Creatinine Ratio 8.9 L 10.0-20.0 Serum Glucose 87 74-106 mg/dL Lactic Acid Level 1.5 0.4-2.0 mmol/L Calcium Level 9.3 8.7-10.4 mg/dL Total Bilirubin 0.4 0.2-1.0 mg/dL Aspartate Amino Transferase (AST) 43 H 13-40 U/L Alanine Aminotransferase (ALT) 61 H 7-40 U/L Alkaline Phosphatase 64 46-116 U/L Total Protein 7.1 5.7-8.2 g/dL Albumin 4.0 3.2-4.8 g/dL Current Medications Medications (Trade) Dose Ordered Sig/Daniel Route Start Time Stop Time Status Last Admin Ketorolac Tromethamine (Toradol Injection) 15 mg ONCE ONCE IV 03/05/25 23:00 03/05/25 23:01 DC 03/06/25 00:47 Ondansetron HCl (Zofran) 4 mg ONCE ONCE IM 03/05/25 23:00 03/05/25 23:01 DC 03/06/25 00:46 Sodium Chloride 1,000 ml @ 1,000 mls/hr Q1H ONCE IV 03/05/25 23:00 03/05/25 23:59 DC 03/06/25 00:41 X-Ray, Labs, Meds, VS Comment CT abdomen shows 1. No definite acute abdominopelvic abnormality. Scattered pelvic phleboliths are seen, several of which appear in close proximity to the right ureter, though not definitively within. CT urogram may be beneficial in further evaluation if clinically indicated. 2. 2.4 cm fat containing right adnexal lesion with associated soft tissue component. Pelvic ultrasound or MRI is suggested in further assessment. Images Reviewed?: Images reviewed and evaluated by me Time of 1ST Reevaluation: 02:00 Reevaluation 1ST: Unchanged Patient Education/Counseling: Diagnosis, Need For Follow Up Family Education/Counseling: No Family Present SEPSIS Sepsis Screen Date sepsis recognized/suspect: Mar 05, 2025 Time Sepsis recognized/suspect: 2103 Recent Procedure: No On Antibiotic Therapy: No Respiratory Rate >20: No Heart Rate >90: No Temp<36 C (96.8 F) or >38.3 C: No SBP <90 or MAP <65 mmHG: No New Acute Mental Status Change: No Is the patient on CPAP, BIPAP,: No Physician Orders Ct Ab Pel Wo Con-No Oral Or Iv (03/06/25 00:01) Vital Signs Date Time Temp Pulse Resp B/P (MAP) Pulse Ox O2 Delivery O2 Flow Rate FiO2 03/06/25 00:30 98.3 65 18 148/86 (106) 95 98.3 03/05/25 21:03 97.8 69 20 144/71 96 97.8 Laboratory Tests Test 03/05/25 23:02 Lactic Acid Level 1.5 mmol/L (0.4-2.0) White Blood Count 5.7 10^3/uL (4.4-10.8) Medications Medications Dose Ordered Sig/Daniel Route Start Time Stop Time Status Last Admin Dose Admin Ketorolac Tromethamine 15 mg ONCE ONCE IV 03/05/25 23:00 03/05/25 23:01 DC 03/06/25 00:47 Ondansetron HCl 4 mg ONCE ONCE IM 03/05/25 23:00 03/05/25 23:01 DC 03/06/25 00:46 Sodium Chloride 1,000 ml @ 1,000 mls/hr Q1H ONCE IV 03/05/25 23:00 03/05/25 23:59 DC 03/06/25 00:41 Departure 1 Departure Time of Disposition: 02:15 Impression: Primary Impression: Ovarian mass Additional Impressions: Nausea Lower abdominal pain Disposition: 30 STILL A PATIENT Condition: Stable Referrals Patient will be admitted to this facility for further workup of abdominal pain and right ovarian mass, transaminitis and hyponatremia. Critical Care Note Critical Care Time?: No Stability Stability form required: JOSE MIGUEL Crowe RESIDENT Mar 05, 2025 22:51
[2025-03-05 23:15] LABS: Hematocrit 43.2 % (36.0-46.0); Hemoglobin 14.1 g/dL (12.2-16.2); Mean Corpuscular Hemoglobin 30.1 pg (28.0-32.0); Mean Corpuscular Volume 92.4 fL (80.0-100.0); Nucleated Red Blood Cells % 0.1 %
[2025-03-05 23:43] LABS: Alanine Aminotransferase 61 U/L (7-40); Albumin 4.0 g/dL (3.2-4.8); Alkaline Phosphatase 64 U/L (46-116); Anion Gap 10 (5-15); BUN/Creatinine Ratio 8.9 (10.0-20.0); Bilirubin, Total 0.4 mg/dL (0.2-1.0); Blood Urea Nitrogen 7 mg/dL (9-23); Calcium 9.3 mg/dL (8.7-10.4); Carbon Dioxide 29 mmol/L (20-31); Chloride 109 mmol/L (98-107); Glucose 87 mg/dL (74-106); Potassium 4.6 mmol/L (3.5-5.1); Sodium 148 mmol/L (136-145); Total Protein 7.1 g/dL (5.7-8.2)
[2025-03-05 23:48] LABS: Urine Protein, UAD Negative (Negative)
[2025-03-06] VITALS (7 sets, daily range): BP systolic 128–166; BP diastolic 66–89; PULSE 61–73; RESP 16–18; TEMP 97.3–98.5; O2SAT 95–100
--- NOTE | 2025-03-06 00:37 | DVH ---
Exam: CT CT AB PEL WO CON-NO ORAL OR IV History: R flank pain, hx of stones Comparison Study: CT CT AB PEL WO CON-NO ORAL OR IV on DOS: 04/10/24, CT CT AB PEL WO CON-NO ORAL OR I V on DOS: 03/14/24 TECHNIQUE: Multidetector CT of the abdomen and pelvis was performed from lung bases to pubic symphysi s. Imaging was performed without IV contrast. Axial, coronal, and sagittal multiplanar reformats were obtained from the axial data set by the technologist. RADIATION DOSE: CTDI vol 25.92 mGy. DLP 1220.16 mGy.cm Findings: Limited evaluation of the solid organs in the absence of IV contrast. Lungs: Basilar atelectasis/ scarring. Unchanged 5 mm left lower lobe nodule. Trace pericardial effusi on. Liver: Unremarkable. Spleen: Unremarkable. Pancreas: Unremarkable. Gallbladder: Unremarkable. Adrenals: Unremarkable Kidneys: There are scattered pelvic phleboliths. There is no hydronephrosis. Pelvic Viscera: 2.4 cm fat containing right adnexal lesion with associated soft tissue component. Vasculature: Unremarkable. Retroperitoneum: Unremarkable. Bowel: No bowel obstruction. The appendix is normal. Prior gastric bypass. Musculoskeletal: Grade 1 anterolisthesis of L4 on L5. Soft tissues: Unremarkable Impression: 1. No definite acute abdominopelvic abnormality. Scattered pelvic phleboliths are seen, several of w hich appear in close proximity to the right ureter, though not definitively within. CT urogram may b e beneficial in further evaluation if clinically indicated. 2. 2.4 cm fat containing right adnexal lesion with associated soft tissue component. Pelvic ultrasou nd or MRI is suggested in further assessment. 3. Incidental findings as detailed.
[2025-03-06] MEDS: SODIUM CHLORIDE 0.9% 1,000 ML IV ONE (00:41)
[2025-03-06] MEDS: ONDANSETRON HCL 4 MG/2 ML VIAL IM ONE (00:46)
[2025-03-06] MEDS: KETOROLAC TROMETH 30 MG/ML 1ML VIAL IV ONE (00:47)
--- NOTE | 2025-03-06 03:10 | DVHHPRES ---
History of Present Illness Resident Creating Document: BALTAZAR HUNT RESIDENT History of Present Illness This is a 60-year-old female with past medical history of stroke in 2018, 19, DVT, osteoarthritis, congestive heart failure, sleep apnea, hypothyroidism, peripheral neuropathy, presented to the ER with chief complain of right flank pain. She complains of 2 weeks of pain, described as stabbing, radiating from right flank posteriorly to anterior lower abdomen. The pain has progressively worsened, now rating 11/10, without aggravating or relieving factors. She complains of associated chills, nausea, dizziness, double vision, generalized weakness. She was recently diagnosed with a dental infection and is currently taking amoxicillin 500 mg twice daily at home. Previous hospitalization: April 2024 for generalized weakness PMHx: CHF, sleep apnea, hypothyroidism, CAD with PTCA, peripheral neuropathy PSHx: sections, bariatric surgery in October 2023 Family history: Colon cancer in mother, Alzheimer's in father Social history: Denies smoking, alcohol, recreational drug use. Lives in house, cares for her brother and sister. Full code, next of kin: daughter Milady and other 2 daughters Home medication: Aspirin, omeprazole, levothyroxine, metoprolol, magnesium oxide, gabapentin Patient was examined at bedside today. She continues to complains of pain in left posterior flank, lower abdomen. She is admitted for further evaluation and management Review of Systems Constitutional: Yes: Chills, Weakness Gastrointestinal: Nausea, Abdominal Pain Neurological: Weakness Allergies: Coded Allergies: Propofol (Verified Allergy, Unknown, 04/02/21) Sulfa Antibiotics (Verified Allergy, Unknown, 04/02/21) Exam Vital Signs Vital Signs Date Time Temp Pulse Resp B/P (MAP) Pulse Ox O2 Delivery O2 Flow Rate FiO2 03/06/25 00:30 98.3 65 18 148/86 (106) 95 98.3 Exam General: Patient alert and oriented in person, place and time. Patient following commands. HEENT: Normocephalic, atraumatic, moist mucous membranes Respiratory/pulmonary: Clear lungs bilaterally, vesicular murmurs present in almost all lung rivers, no associated crackles or wheezes. Cardiovascular: Normal heart sounds S1 and S2 with no associated murmurs Abdomen: Subcutaneous lipomatous nodules, tenderness in left flank posteriorly Extremities: There is no peripheral edema present at the lower extremities. Peripheral Pulses: 3+ Radial (R). 3+ Radial (L). 3+ Dorsalis pedis (R). 3+ Dorsalis pedis(L) Skin: No rashes or pruritus, there is no sacral edema present at this time. Neurological: Motor strength 3/5 in all 4 extremities due to generalized weakness. Normal sensory strength, normal cranial nerve exam. Labs/Xrays Labs Test 03/05/25 23:14 03/05/25 23:02 Range/Units Urine Color Yellow Yellow Urine Clarity Clear Clear Urine pH 5.5 5.0-9.0 Urine Specific [place] 1.031 1.001-1.035 Urine Protein Negative Negative Urine Ketones Trace Negative Urine Blood Negative Negative /uL Urine Nitrite Negative Negative Urine Bilirubin Negative Negative Urine Urobilinogen Normal Negative mg/dL Urine Leukocyte Esterase Trace Negative /uL Urine RBC 5 0 - 4 /hpf Urine Microscopic WBC 3 0-5 /HPF Urine Squamous Epithelial Cells Few <5 /hpf Urine Bacteria None seen None Seen /hpf Urine Mucus Few None Seen Urine Glucose Normal Normal mg/dL Urine Test Negative Negative White Blood Count 5.7 4.4-10.8 10^3/uL Red Blood Count 4.68 4.0-5.20 10^6/uL Hemoglobin 14.1 12.2-16.2 g/dL Hematocrit 43.2 36.0-46.0 % Mean Corpuscular Volume 92.4 80.0-100.0 fL Mean Corpuscular Hemoglobin 30.1 28.0-32.0 pg Mean Corpuscular Hemoglobin Concent 32.5 32.0-36.0 g/dL Red Cell Distribution Width 14.7 H 11.8-14.3 % Platelet Count 216 140-450 10^3/uL Mean Platelet Volume 7.2 6.9-10.8 fL Neutrophils (%) (Auto) 45.3 37.0-80.0 % Lymphocytes (%) (Auto) 46.8 10.0-50.0 % Monocytes (%) (Auto) 6.0 0.0-12.0 % Eosinophils (%) (Auto) 1.0 0.0-7.0 % Basophils (%) (Auto) 0.9 0.0-2.0 % Neutrophils # (Auto) 2.6 1.6-8.6 10 ^3/uL Lymphocytes # (Auto) 2.7 0.4-5.4 10 ^3/uL Monocytes # (Auto) 0.3 0-1.3 10 ^3/uL Eosinophils # (Auto) 0.1 0-0.8 10 ^3/uL Basophils # (Auto) 0 0-0.2 10 ^3/uL Nucleated Red Blood Cells 0.1 % Sodium Level 148 H 136-145 mmol/L Potassium Level 4.6 3.5-5.1 mmol/L Chloride Level 109 H 98-107 mmol/L Carbon Dioxide Level 29 20-31 mmol/L Anion Gap 10 5-15 Blood Urea Nitrogen 7 L 9-23 mg/dL Creatinine 0.79 0.550-1.02 mg/dL Glomerular Filtration Rate Calc 86 >90 mL/min BUN/Creatinine Ratio 8.9 L 10.0-20.0 Serum Glucose 87 74-106 mg/dL Lactic Acid Level 1.5 0.4-2.0 mmol/L Calcium Level 9.3 8.7-10.4 mg/dL Total Bilirubin 0.4 0.2-1.0 mg/dL Aspartate Amino Transferase (AST) 43 H 13-40 U/L Alanine Aminotransferase (ALT) 61 H 7-40 U/L Alkaline Phosphatase 64 46-116 U/L Total Protein 7.1 5.7-8.2 g/dL Albumin 4.0 3.2-4.8 g/dL SEPSIS Sepsis Screen Date sepsis recognized/suspect: Mar 05, 2025 Time Sepsis recognized/suspect: 2103 Recent Procedure: No On Antibiotic Therapy: No Respiratory Rate >20: No Heart Rate >90: No Temp<36 C (96.8 F) or >38.3 C: No SBP <90 or MAP <65 mmHG: No New Acute Mental Status Change: No Is the patient on CPAP, BIPAP,: No Physician Orders Ct Ab Pel Wo Con-No Oral Or Iv (03/06/25 00:01) Vital Signs Date Time Temp Pulse Resp B/P (MAP) Pulse Ox O2 Delivery O2 Flow Rate FiO2 03/06/25 00:30 98.3 65 18 148/86 (106) 95 98.3 03/05/25 21:03 97.8 69 20 144/71 96 97.8 Laboratory Tests Test 03/05/25 23:02 Lactic Acid Level 1.5 mmol/L (0.4-2.0) White Blood Count 5.7 10^3/uL (4.4-10.8) Medications Medications Dose Ordered Sig/Daniel Route Start Time Stop Time Status Last Admin Dose Admin Ketorolac Tromethamine 15 mg ONCE ONCE IV 03/05/25 23:00 03/05/25 23:01 DC 03/06/25 00:47 15 MG Ondansetron HCl 4 mg ONCE ONCE IM 03/05/25 23:00 03/05/25 23:01 DC 03/06/25 00:46 4 MG Sodium Chloride 1,000 ml @ 1,000 mls/hr Q1H ONCE IV 03/05/25 23:00 03/05/25 23:59 DC 03/06/25 00:41 1,000 MLS/HR Assessment/Plan Assessment/Plan Pelvic inflammatory disease CT shows: Scattered pelvic phleboliths are seen, several of which appear in close proximity to the right ureter, though not definitively within. 2.4 cm fat containing right adnexal lesion with associated soft tissue component. Pelvic ultrasound or MRI is suggested in further assessment. Chlamydia, gonorrhea, HIV, treponema testing ordered Pelvic ultrasound ordered IM ceftriaxone once, metronidazole 500 mg b.i.d., doxycycline 100 mg b.i.d. Hypernatremia, likely due to dehydration IV NS maintenance Transaminitis Hepatitis panel ordered Hypothyroidism TSH Continue levothyroxine 50 mcg Essential Hypertension Metoprolol tartrate 25 mg p.o. Chronic constipation Magnesium oxide 400 mg as needed History of bariatric surgery History of ischemic stroke Aspirin 81 mg, atorvastatin 40 mg daily Judaism No blood products DIET: Clear liquid DVT PROPHYLAXIS: Lovenox GI PROPHYLAXIS: Protonix CODE STATUS: Goals of care discussed with patient at bedside for more than 35 minutes. Full code DISPOSITION: Med/surge Patient's status and plan discussed with the patient. Case discussed with Dr. Mock Plan discussed with: Patient, Other (Nurses) Date of Service: Mar 06, 2025 Billing Provider: GIULIANA FLEMING MD Common Visit Codes: [id number] INP/OBS CARE (HIGH) Secondary Visit Codes: [id number] CARE PLAN 30 MINUTES BALTAZAR HUNT RESIDENT Mar 06, 2025 03:10 JORY JOHNSON RESIDENT Mar 06, 2025 06:45
[2025-03-06 03:52] LABS: Lipase 40.0 U/L (12-53); Magnesium 2.1 mg/dL (1.6-2.6)
[2025-03-06] MEDS: ENOXAPARIN SOD 40 MG/0.4 ML SYRINGE SC SCH (04:00)
[2025-03-06] MEDS: cefTRIAXone SOD 500 MG VL IM ONE (04:00)
[2025-03-06] MEDS ORDERED: ACETAMINOPHEN 325 MG TAB PO PRN (04:00)
[2025-03-06] MEDS ORDERED: MORPHINE SULFATE INJ 2 MG/ml SYRG IV PRN (04:00)
[2025-03-06 04:21] LABS: Triglycerides 84.0 mg/dL (< 150)
[2025-03-06 04:23] LABS: Cholesterol 143.0 mg/dL (< 200)
[2025-03-06 04:25] LABS: HDL Cholesterol 87.0 mg/dL (40-59)
[2025-03-06 04:33] LABS: INR 1.01 (0.9-1.15); Partial Thromboplastin Time 26.3 SEC (24.5-34.5); Prothrombin Time 10.7 sec (9.3-11.8)
[2025-03-06 05:28] LABS: Amphetamine Screen, Urine Neg (NEGATIVE); Barbiturate Scree,Urine Neg (NEGATIVE); Benzodiazephine Screen, Urine Neg (NEGATIVE); Cannabinoid Screen, Urine Neg (NEGATIVE); Cocaine Screen, Urine Neg (NEGATIVE); Opiate Scree,Urine Neg (NEGATIVE); Phencyclidine Screen, Urine Neg (NEGATIVE)
[2025-03-06] MEDS: LEVOTHYROXINE SODIUM 25 MCG TAB PO SCH (05:54)
[2025-03-06] MEDS: PANTOPRAZOLE 40 MG TAB PO SCH (05:54)
[2025-03-06] MEDS: SODIUM CHLORIDE 0.9% 1,000 ML IV SCH (05:54)
[2025-03-06] MEDS: MORPHINE SULFATE 4 MG/ML SYR/VIAL IV PRN (06:19)
--- NOTE | 2025-03-06 08:13 | DVH ---
Carotid Duplex Date: 03/06/2025 06:59 AM Clinical History: Presyncope Comparison: None Technique: Duplex Doppler evaluation of the extracranial carotid and vertebral arteries including col or Doppler and spectral/pulsed waveform analysis was performed. Findings: RIGHT SIDE: The peak systolic velocities are 55 cm/s in the distal CCA and 55 cm/s in the proximal ICA. The ICA/C CA ratio is 1.9.The external carotid artery is patent with peak systolic velocity of 29 cm/s proximal ly. There is appropriate antegrade flow in the right vertebral artery. LEFT SIDE: The peak systolic velocities are 64 cm/s in the distal CCA and 143 cm/s in the proximal ICA. The ICA/ CCA ratio is 2.2.The external carotid artery is patent with peak systolic velocity of 49 cm/s proxima lly. There is appropriate antegrade flow in the left vertebral artery. IMPRESSION: Less than 50% stenosis right internal carotid artery. 50-69% stenosis left internal carotid artery.
--- NOTE | 2025-03-06 08:25 | DVH ---
INDICATION: Adnexal mass TECHNIQUE: Multiple real-time grayscale transabdominal sonographic images along with color and duplex Doppler of the uterus and ovaries were obtained. COMPARISON: CT 03/05/2025 FINDINGS: The uterus measures 8.4 x 5.6 x 4.2 cm. The uterus is heterogeneous. Multiple echogenic fo ci in the uterus. There is a Intrauterine fibroid measuring 3.2 cm. The endometrial stripe measures 1.2cm. The right ovary is not well visualized due to obscuration from bowel gas. Right echogenic adnexal les ion measuring 3.9 cm suggestive of a dermoid in correlation with recent CT. The left ovary measures 3.5 x 2.1 x 2.4 cm. Subsequent color and duplex Doppler interrogation of the ovaries demonstrated symmetric vascular flow to both ovaries, though this does not exclude the possibility of torsion due to the dual blood suppl y. IMPRESSION: Heterogeneous uterus with multiple calcifications and Intrauterine fibroid measuring 3.2 cm. Right echogenic adnexal lesion measuring 3.9 cm suggestive of a dermoid in correlation with recent CT .
[2025-03-06] MEDS: MAGNESIUM OXIDE 400 MG TAB PO SCH (09:45)
[2025-03-06] MEDS: metroNIDAZOLE 500 MG TAB PO SCH (09:45)
[2025-03-06] MEDS: DOXYCYCLINE 100 MG TAB/CAP PO SCH (09:45)
[2025-03-06] MEDS: METOPROLOL TARTRATE 25 MG TAB PO SCH (09:46)
[2025-03-06] MEDS: ONDANSETRON HCL 4 MG/2 ML VIAL IV PRN (11:06)
--- NOTE | 2025-03-06 11:19 | DVHPN2 ---
Reviewed: Care Plan, H&P, Labs, Medications, Previous Orders, Radiology Changes from previous H/P or p: No Changes Gastrointestinal: Nausea, Abdominal Pain Objective Vitals Vital Signs Date Time Temp Pulse Resp B/P (MAP) Pulse Ox O2 Delivery O2 Flow Rate FiO2 03/06/25 11:02 70 16 163/83 03/06/25 08:42 98.5 97 98.5 03/06/25 05:42 Room Air* 0 21 Medications Current Medications Medications Dose Ordered Sig/Daniel Route Start Time Stop Time Status Last Admin Dose Admin Sodium Chloride 1,000 ml @ 120 mls/hr Q8H20M IV 03/06/25 04:00 03/06/25 05:54 120 MLS/HR Acetaminophen 325 mg Q4HP PRN PO 03/06/25 04:00 Ondansetron HCl 4 mg Q4HP PRN IV 03/06/25 04:00 03/06/25 11:06 4 MG Morphine Sulfate 2 mg Q4HPRN PRN IV 03/06/25 04:00 Enoxaparin Sodium 40 mg DAILY SC 03/06/25 04:00 03/06/25 09:54 40 MG Levothyroxine Sodium 25 mcg QAM@0600 PO 03/06/25 06:00 03/06/25 05:54 25 MCG Metoprolol Tartrate 25 mg BID PO 03/06/25 10:00 03/06/25 09:46 25 MG Aspirin 81 mg DAILY PO 03/06/25 10:00 03/06/25 09:45 81 MG Atorvastatin Calcium 20 mg HS PO 03/06/25 22:00 Magnesium Oxide 400 mg DAILY PO 03/06/25 10:00 03/06/25 09:45 400 MG Metronidazole 500 mg Q12HR PO 03/06/25 10:00 03/06/25 09:45 500 MG Doxycycline Monohydrate 100 mg Q12HR PO 03/06/25 10:00 03/06/25 09:45 100 MG Pantoprazole Sodium 40 mg DAILY@0600 PO 03/06/25 06:00 03/06/25 05:54 40 MG Morphine Sulfate 4 mg Q4HPRN PRN IV 03/06/25 06:15 03/06/25 11:02 4 MG Laboratory Results Laboratory Tests 03/05/25 23:02 Chemistry Test 03/05/25 23:02 Albumin 4.0 g/dL (3.2-4.8) Calcium Level 9.3 mg/dL (8.7-10.4) Magnesium Level 2.1 mg/dL (1.6-2.6) Phosphorus Level 3.8 mg/dL (2.4-5.1) Total Protein 7.1 g/dL (5.7-8.2) Coagulation Test 03/06/25 03:54 Prothrombin Time 10.7 sec (9.3-11.8) Prothrombin Time INR 1.01 (0.9-1.15) Activated Partial Thromboplast Time 26.3 SEC (24.5-34.5) Lipid panel Test 03/05/25 23:02 Cholesterol Level 143 mg/dL (< 200) HDL Cholesterol 87 mg/dL (40-59) H Lipase 40 U/L (12-53) Triglycerides Level 84 mg/dL (< 150) LFT Test 03/05/25 23:02 Alanine Aminotransferase (ALT) 61 U/L (7-40) H Alkaline Phosphatase 64 U/L (46-116) Aspartate Amino Transferase (AST) 43 U/L (13-40) H Total Bilirubin 0.4 mg/dL (0.2-1.0) HgA1c, TSH Test 03/05/25 23:02 Thyroid Stimulating Hormone (TSH) 2.92 uIU/mL (0.55-4.78) Urinalysis Test 03/05/25 23:14 Urine Color Yellow (Yellow) Urine Clarity Clear (Clear) Urine pH 5.5 (5.0-9.0) Urine Specific [place] 1.031 (1.001-1.035) Urine Protein Negative (Negative) Urine Ketones Trace (Negative) Urine Blood Negative /uL (Negative) Urine Nitrite Negative (Negative) Urine Bilirubin Negative (Negative) Urine Urobilinogen Normal mg/dL (Negative) Urine Leukocyte Esterase Trace /uL (Negative) Urine RBC 5 /hpf (0 - 4) Urine Microscopic WBC 3 /HPF (0-5) Urine Squamous Epithelial Cells Few /hpf (<5) Urine Bacteria None seen /hpf (None Seen) Urine Mucus Few (None Seen) Urine Glucose Normal mg/dL (Normal) Urine Test Negative (Negative) Labs and/or images reviewed: Labs reviewed by me, Image(s) reviewed by me Assessment/Plan Assessment/Plan 3.9 cm right pelvic mass with pelvic pain: Consult for Dr. Conn Hypothyroidism Hypertension Chronic constipation History of bariatric surgery History of stroke CHF Sleep apnea History of coronary artery disease Peripheral neuropathy Time Spent 65 minutes Advanced care planning time 20 minutes Patient is full code Plan discussed with: Patient Date of Service: Mar 06, 2025 Billing Provider: ZURDO GOLDSTEIN MD Common Visit Codes: [id number] INP/OBS CARE(HIGH) Secondary Visit Codes: [id number]-WONOIOAL CARE PLAN 30 MINUTES ZURDO GOLDSTEIN MD Mar 06, 2025 11:19
[2025-03-06 12:24] LABS: COVID19 ANTIGEN SOFIA FIA NEGATIVE (NEGATIVE)
[2025-03-06] MEDS: ATORVASTATIN 20 MG TAB PO SCH (21:52)
[2025-03-07] VITALS (7 sets, daily range): BP systolic 132–145; BP diastolic 67–78; PULSE 55–76; RESP 7–18; TEMP 96.3–98.2; O2SAT 95–99
--- NOTE | 2025-03-07 07:56 | DVHOP2 ---
Operative Report DATE OF OPERATION: 03/07/25 PREOPERATIVE DIAGNOSES: 1. Term , desires primary section.macrosomia,gdma2,morbid obesity 2. Desires bilateral tubal ligation POSTOPERATIVE DIAGNOSES: 1. same 2. Desires bilateral tubal ligation PROCEDURES: primary section with bilateral tubal ligation via Filschie Clips SURGEON: Jewell Lopez D.O./iván ANESTHESIOLOGIST: Dr. evans TYPE OF ANESTHESIA : general ESTIMATED BLOOD LOSS: 800 mL CONSENT: The patient was informed of the risks and benefits of the procedure. These include but are not limited to , complications of anesthesia, postoperative infection, incomplete relief of symptoms, recurrence of symptoms, damage to blood vessels, nerves and tendons, deep venous thrombosis, pulmonary embolism and possible need for repeat surgery in the future. Surgery was opted. FINDINGS: Baby [b] with apgars and . Grossly normal appearing tubes and ovaries. TISSUE TO PATHOLOGY: Placenta. PROCEDURE IN DETAIL: The patient was taken to the operating room where she was placed under general anesthesia. She was previously prepped and draped in the usual sterile manner in supine position with a leftward tilt. A Pfannenstiel skin incision was then made 2 cm above the symphysis pubis. This incision was carried to the underlying layer of fascia. The fascia was nicked in the midline and the incision was extended laterally. The superior aspect of the fascial incision was grasped and elevated. Underlying rectus muscle was dissected off bluntly. The same procedure was done to the inferior aspect of the fascial incision. The rectus muscles were then in the midline. Peritoneum was identified and entered. Peritoneal incision was extended superiorly and inferiorly with good visualization of the bladder. Bladder blade was inserted. Vesicouterine peritoneum was identified and entered. Lower uterine segment was incised in a transverse fashion. The infant was delivered from vertex presentation. The infant was baby [b] with Apgars of and . Placenta was then removed manually. Uterus was exteriorized and cleared off all clots and debris. Uterine incision was repaired using 0 Vicryl in a double-layered fashion. No bleeding was noted. Bilateral tubal ligation was then performed using [place]. Placed in the ampullary region and identifying the fimbria distally. The isthmic portion of the right tube was clipped using Filschie Clip. The same procedure was done on the opposite side. No bleeding was noted. Peritoneum was closed using 0 Vicryl, fascia was closed using 0 [place], and skin was closed using gaby. Estimated blood loss was noted to be 800 mL. The patient tolerated the procedure well. She was taken to the recovery room in stable condition. Visit Coding OBGYN Date of Service: Mar 07, 2025 Billing Provider: JEWELL LOPEZ DO IS SUPPORT ANALYST Common Visit Codes: [id number] INP/OBS CARE (HIGH) IS SUPPORT ANALYST Procedure Codes: [id number] @ TIME OF , 00097-[id number] DELIVERY ONLY JEWELL LOPEZ DO Mar 07, 2025 07:56
[2025-03-07] MEDS ORDERED: MORPHINE SULFATE 4 MG/ML SYR/VIAL IV PRN (08:00)
--- NOTE | 2025-03-07 08:00 | POSTOP ---
Post-Operative Note Post-Operative Note Preop Diagnosis term preg desires pcs with btl,morbid obesity,gdma2,macrosmia Postop Diagnosis: same Operation performed pltcs with btl Specimen baby boy,vx Anesthesia: General Anesthesiologist: nuygen Blood Loss(fluid mgmt) 800ml Surgeon Jewell Conn Typesetter Apprentice iván Implant filschie Complications & Mgmt none Date 03/07/25 Time 07:56 Visit Coding OBGYN Date of Service: Mar 07, 2025 Billing Provider: JEWELL CONN DO HULL GRINDER Common Visit Codes: [id number] INP/OBS CARE (HIGH) HULL GRINDER Procedure Codes: [id number] @ TIME OF , 96357-G-[id number] DELIVERY ONLY JEWELL CONN DO Mar 07, 2025 08:00
--- NOTE | 2025-03-07 09:25 | DVHPN2 ---
Reviewed: Care Plan, H&P, Labs, Medications, Previous Orders, Radiology Changes from previous H/P or p: No Changes Gastrointestinal: Nausea, Abdominal Pain Objective Vitals Vital Signs Date Time Temp Pulse Resp B/P (MAP) Pulse Ox O2 Delivery O2 Flow Rate FiO2 03/07/25 08:49 75 14 142/89 03/07/25 08:43 98.2 98 98.2 03/06/25 20:00 Room Air* 0 21 Intake/Output Intake and Output 03/07/25 07:00 Intake Total 1150 ml Balance 1150 ml Intake Oral 1150 ml # Voids 11 Medications Current Medications Medications Dose Ordered Sig/Daniel Route Start Time Stop Time Status Last Admin Dose Admin Sodium Chloride 1,000 ml @ 120 mls/hr Q8H20M IV 03/06/25 04:00 03/07/25 05:45 120 MLS/HR Acetaminophen 325 mg Q4HP PRN PO 03/06/25 04:00 Ondansetron HCl 4 mg Q4HP PRN IV 03/06/25 04:00 03/07/25 08:47 4 MG Morphine Sulfate 2 mg Q4HPRN PRN IV 03/06/25 04:00 Enoxaparin Sodium 40 mg DAILY SC 03/06/25 04:00 03/06/25 09:54 40 MG Levothyroxine Sodium 25 mcg QAM@0600 PO 03/06/25 06:00 03/07/25 05:44 25 MCG Metoprolol Tartrate 25 mg BID PO 03/06/25 10:00 03/06/25 21:31 25 MG Aspirin 81 mg DAILY PO 03/06/25 10:00 03/06/25 09:45 81 MG Atorvastatin Calcium 20 mg HS PO 03/06/25 22:00 03/06/25 21:52 20 MG Magnesium Oxide 400 mg DAILY PO 03/06/25 10:00 03/06/25 09:45 400 MG Metronidazole 500 mg Q12HR PO 03/06/25 10:00 03/06/25 21:52 500 MG Doxycycline Monohydrate 100 mg Q12HR PO 03/06/25 10:00 03/06/25 21:52 100 MG Pantoprazole Sodium 40 mg DAILY@0600 PO 03/06/25 06:00 03/07/25 05:44 40 MG Morphine Sulfate 4 mg Q4HPRN PRN IV 03/06/25 06:15 03/07/25 08:49 4 MG Morphine Sulfate 2 mg Q4HP PRN IV 03/07/25 08:00 UNV Laboratory Results Laboratory Tests 03/05/25 23:02 Urinalysis Test 03/05/25 23:14 Urine Color Yellow (Yellow) Urine Clarity Clear (Clear) Urine pH 5.5 (5.0-9.0) Urine Specific [place] 1.031 (1.001-1.035) Urine Protein Negative (Negative) Urine Ketones Trace (Negative) Urine Blood Negative /uL (Negative) Urine Nitrite Negative (Negative) Urine Bilirubin Negative (Negative) Urine Urobilinogen Normal mg/dL (Negative) Urine Leukocyte Esterase Trace /uL (Negative) Urine RBC 5 /hpf (0 - 4) Urine Microscopic WBC 3 /HPF (0-5) Urine Squamous Epithelial Cells Few /hpf (<5) Urine Bacteria None seen /hpf (None Seen) Urine Mucus Few (None Seen) Urine Glucose Normal mg/dL (Normal) Urine Test Negative (Negative) Labs and/or images reviewed: Labs reviewed by me, Image(s) reviewed by me Assessment/Plan Assessment/Plan 3.9 cm right pelvic mass with pelvic pain: Consult for Dr. Conn Hypothyroidism Hypertension Chronic constipation History of bariatric surgery History of stroke CHF Sleep apnea History of coronary artery disease Peripheral neuropathy Time Spent 55 minutes Advanced care planning time 20 minutes Patient is full code Plan discussed with: Patient My Orders Orders - ZURDO GOLDSTEIN MD Procedure Category Date Status Time * Director Loan Consultation CONS 03/06/25 Transmitted 11:14 Date of Service: Mar 07, 2025 Billing Provider: ZURDO GOLDSTEIN MD Common Visit Codes: [id number] INP/OBS CARE(HIGH) ZURDO GOLDSTEIN MD Mar 07, 2025 09:25
[2025-03-07 10:40] LABS: Hepatitis B Surface Antigen Negative (Negative)
[2025-03-07 10:41] LABS: Hepatitis C Antibody Negative (Negative)
[2025-03-07 12:07] LABS: Chlamydia Trachomatis, NAA Negative (Negative); Neisseria gonorrhoeae, NAA Negative (Negative)
--- NOTE | 2025-03-07 12:11 | DVHINCON2 ---
Date of service: Mar 06, 2025 Referring Physician hospitalist Reason for Consultation adenxal mass History of Present Illness pt is admitted for pyelo ,pt had hx of embolization .sono reveals 3.9 cm r adenxal mass possible dermoid.pt has no aub or pelvic pain last pap was 2 yrs ago.pt has r flank pain x2 wks Past Medical History cva,htn,chf,hypothyroidism,cad Past Surgical History baratric surg,3 cs,uterine artery embolization Family History na Social History 3cs,3 ,3 sab Patient Family History: Alzheimer's disease G8 FATHER (UNKNOWN ) Colon cancer (UNKNOWN CANCER) G8 MOTHER FH: cancer Allergies: Coded Allergies: Propofol (Verified Allergy, Unknown, 04/02/21) Sulfa Antibiotics (Verified Allergy, Unknown, 04/02/21) Home Meds Active Scripts Metoclopramide Hcl (Reglan) 10 Mg Tab, 10 MG PO BID, #30 TAB Prov:ZURDO GOLDSTEIN MD 04/11/24 Reported Medications Gabapentin (Gabapentin) 600 Mg Tab, 1 TAB PO BID 04/10/24 Cetirizine HCl (Cetirizine Hydrochloride) 10 Mg Tab, 1 TAB PO DAILY 04/10/24 Carvedilol (Carvedilol) 25 Mg Tab, 1 TAB PO BID 04/10/24 Cholecalciferol (VITAMIN D3) 2,000 Unit Tab, 50 MCG PO DAILY 04/10/24 Famotidine (PEPCID TABLET) 20 Mg Tb, 1 TAB PO BID 04/10/24 Aspirin (Aspirin Low Dose) 81 Mg Chw, 81 MG PO DAILY, TAB.CHEW 03/24/22 Levothyroxine Sodium (Synthroid) 25 Mcg Tab, 50 MCG PO DAILY, TAB 03/24/22 Current Medications Current Medications Medications (Trade) Dose Ordered Sig/Daniel Route PRN Reason Start Time Stop Time Status Last Admin Atorvastatin Calcium (Lipitor) 20 mg HS PO 03/06/25 22:00 03/06/25 21:52 Morphine Sulfate 2 mg Q4HP PRN IV SEVERE PAIN (7-10 PAIN SCALE) 03/07/25 08:00 03/07/25 10:11 DC Hydromorphone HCl (Dilaudid Injection) 0.5 mg Q4HPRN PRN IV SEVERE PAIN (7-10 PAIN SCALE) 03/07/25 10:15 Review of Systems Constitutional: no fever, chill, weight loss HEENT: no eye pain, no hearing loss, no oral lesion, no scleral icterus Heart: no chest pain, no chest pressure Lung: no cough, no dyspnea with exertion Abdomen: see HPI : no pain with urination, normal appearing urine Musculoskeletal: no joint pain, no muscle pain Neurological: no seizure, no loss of sensation, no weakness in extremities Pysch: no depression, no anxiety Derm: no rash, no jaundice Vital Signs Vital Signs Date Time Temp Pulse Resp B/P (MAP) Pulse Ox O2 Delivery O2 Flow Rate FiO2 03/07/25 11:28 65 145/81 03/07/25 08:49 14 03/07/25 08:43 98.2 98 98.2 03/07/25 08:00 Room Air* 0 21 Physical Exam HEENT: nl NECK: [nl] CARDIAC: [rrr] PULMONARY: [cta] ABDOMEN: [soft,nt pos bs] cva tenderness right flank pelvic-nl vag and cx,uterus 8 wks size,adenxa nt ext -no cce Labs/Diagnostic Data Labs Test 03/06/25 11:00 03/06/25 04:48 03/06/25 03:54 03/05/25 23:14 Range/Units Influenza Type A Antigen Negative Negative Influenza Type B Antigen Negative Negative SARS-CoV-2 Antigen (Rapid) Negative NEGATIVE Troponin I High Sensitivity < 3 L </=34 ng/L Treponema pallidum Antibody Non-reactive Negative Hepatitis A IgM Antibody Negative Hepatitis B Surface Antigen Negative Negative Hepatitis B Core IgM Antibody Negative Negative Hepatitis C Antibody Negative Negative HIV (1&2) Antibody Negative Negative Prothrombin Time 10.7 9.3-11.8 sec Prothrombin Time INR 1.01 0.9-1.15 Activated Partial Thromboplast Time 26.3 24.5-34.5 SEC Urine Color Yellow Yellow Urine Clarity Clear Clear Urine pH 5.5 5.0-9.0 Urine Specific [place] 1.031 1.001-1.035 Urine Protein Negative Negative Urine Ketones Trace Negative Urine Blood Negative Negative /uL Urine Nitrite Negative Negative Urine Bilirubin Negative Negative Urine Urobilinogen Normal Negative mg/dL Urine Leukocyte Esterase Trace Negative /uL Urine RBC 5 0 - 4 /hpf Urine Microscopic WBC 3 0-5 /HPF Urine Squamous Epithelial Cells Few <5 /hpf Urine Bacteria None seen None Seen /hpf Urine Mucus Few None Seen Urine Glucose Normal Normal mg/dL Urine Test Negative Negative Urine Opiates Screen Neg NEGATIVE Urine Fentanyl Screen Neg NEGATIVE Urine Barbiturates Screen Neg NEGATIVE Urine Phencyclidine Screen Neg NEGATIVE Urine Amphetamines Screen Neg NEGATIVE Urine Benzodiazepines Screen Neg NEGATIVE Urine Cocaine Screen Neg NEGATIVE Urine Cannabinoids Screen Neg NEGATIVE Test 03/05/25 23:02 Range/Units White Blood Count 5.7 4.4-10.8 10^3/uL Red Blood Count 4.68 4.0-5.20 10^6/uL Hemoglobin 14.1 12.2-16.2 g/dL Hematocrit 43.2 36.0-46.0 % Mean Corpuscular Volume 92.4 80.0-100.0 fL Mean Corpuscular Hemoglobin 30.1 28.0-32.0 pg Mean Corpuscular Hemoglobin Concent 32.5 32.0-36.0 g/dL Red Cell Distribution Width 14.7 H 11.8-14.3 % Platelet Count 216 140-450 10^3/uL Mean Platelet Volume 7.2 6.9-10.8 fL Neutrophils (%) (Auto) 45.3 37.0-80.0 % Lymphocytes (%) (Auto) 46.8 10.0-50.0 % Monocytes (%) (Auto) 6.0 0.0-12.0 % Eosinophils (%) (Auto) 1.0 0.0-7.0 % Basophils (%) (Auto) 0.9 0.0-2.0 % Neutrophils # (Auto) 2.6 1.6-8.6 10 ^3/uL Lymphocytes # (Auto) 2.7 0.4-5.4 10 ^3/uL Monocytes # (Auto) 0.3 0-1.3 10 ^3/uL Eosinophils # (Auto) 0.1 0-0.8 10 ^3/uL Basophils # (Auto) 0 0-0.2 10 ^3/uL Nucleated Red Blood Cells 0.1 % Sodium Level 148 H 136-145 mmol/L Potassium Level 4.6 3.5-5.1 mmol/L Chloride Level 109 H 98-107 mmol/L Carbon Dioxide Level 29 20-31 mmol/L Anion Gap 10 5-15 Blood Urea Nitrogen 7 L 9-23 mg/dL Creatinine 0.79 0.550-1.02 mg/dL Glomerular Filtration Rate Calc 86 >90 mL/min BUN/Creatinine Ratio 8.9 L 10.0-20.0 Serum Glucose 87 74-106 mg/dL Lactic Acid Level 1.5 0.4-2.0 mmol/L Calcium Level 9.3 8.7-10.4 mg/dL Phosphorus Level 3.8 2.4-5.1 mg/dL Magnesium Level 2.1 1.6-2.6 mg/dL Total Bilirubin 0.4 0.2-1.0 mg/dL Aspartate Amino Transferase (AST) 43 H 13-40 U/L Alanine Aminotransferase (ALT) 61 H 7-40 U/L Alkaline Phosphatase 64 46-116 U/L C-Reactive Protein High Sensitivity 0.34 <1.0 mg/dL Total Protein 7.1 5.7-8.2 g/dL Albumin 4.0 3.2-4.8 g/dL Triglycerides Level 84 < 150 mg/dL Cholesterol Level 143 < 200 mg/dL LDL Cholesterol 36 < 100 mg/dL HDL Cholesterol 87 H 40-59 mg/dL Lipase 40 12-53 U/L Vitamin B12 Level 915 H 211-911 pg/mL Vitamin D 25-Hydroxy 86.5 30.0-100 ng/mL Thyroid Stimulating Hormone (TSH) 2.92 0.55-4.78 uIU/mL Primary Diagnosis right pyelonephritis post menopausal -s/p uterine artery embolization Plan no boatswain's mate intervention needed fu out pt for mammo and pap will sign off,thank you very much Plan discussed with: Patient Visit Coding OBGYN Date of Service: Mar 06, 2025 Billing Provider: JEWELL LOPEZ DO HARVEST WORKER Common Visit Codes: [id number] INP/OBS CARE (HIGH) HARVEST WORKER Consultation Codes: [id number] CONSULT <110MIN JEWELL LOPEZ DO Mar 07, 2025 12:11
[2025-03-07] MEDS ORDERED: MELATONIN 5 MG TAB PO ONE (23:30)
[2025-03-07] MEDS ORDERED: HYDROcodone-ACET 5/325MG TAB PO PRN (23:30)
[2025-03-08 00:48] VITALS: BP 151/77; PULSE 56; RESP 18; TEMP 97.6; O2SAT 100
[2025-03-08] MEDS: KETOROLAC TROMETH 30 MG/ML 1ML VIAL IV ONE (01:37)
[2025-03-08 05:00] VITALS: BP 127/62; PULSE 66; RESP 15; TEMP 97.5; O2SAT 96
[2025-03-08 08:00] VITALS: PULSE 75; RESP 18; O2SAT 98
[2025-03-08 08:41] VITALS: BP 139/79; PULSE 73; RESP 19; TEMP 97; O2SAT 98
[2025-03-08] MEDS: HYDROmorphone HCL 2 MG/ML VL/or syr IV PRN (08:59)
[2025-03-08] MEDS ORDERED: TRAM-626 PO (09:39)
[2025-03-08] MEDS ORDERED: CIPR-173 PO (09:39)
--- NOTE | 2025-03-08 09:43 | DVHPN2 ---
Reviewed: Care Plan, H&P, Labs, Medications, Previous Orders, Radiology Changes from previous H/P or p: No Changes Gastrointestinal: Nausea, Abdominal Pain Objective Vitals Vital Signs Date Time Temp Pulse Resp B/P (MAP) Pulse Ox O2 Delivery O2 Flow Rate FiO2 03/08/25 08:59 73 18 139/79 03/08/25 08:41 97.0 98 97.0 03/07/25 20:00 Room Air* 0 21 Intake/Output Intake and Output 03/08/25 07:00 Intake Total 1300 ml Balance 1300 ml Intake Oral 800 ml IV Total 500 ml # Voids 11 Medications Current Medications Medications Dose Ordered Sig/Daniel Route Start Time Stop Time Status Last Admin Dose Admin Sodium Chloride 1,000 ml @ 120 mls/hr Q8H20M IV 03/06/25 04:00 03/08/25 07:03 120 MLS/HR Acetaminophen 325 mg Q4HP PRN PO 03/06/25 04:00 Ondansetron HCl 4 mg Q4HP PRN IV 03/06/25 04:00 03/08/25 09:10 4 MG Enoxaparin Sodium 40 mg DAILY SC 03/06/25 04:00 03/07/25 11:28 40 MG Levothyroxine Sodium 25 mcg QAM@0600 PO 03/06/25 06:00 03/08/25 07:02 25 MCG Metoprolol Tartrate 25 mg BID PO 03/06/25 10:00 03/07/25 11:28 25 MG Aspirin 81 mg DAILY PO 03/06/25 10:00 03/07/25 11:29 81 MG Atorvastatin Calcium 20 mg HS PO 03/06/25 22:00 03/06/25 21:52 20 MG Magnesium Oxide 400 mg DAILY PO 03/06/25 10:00 03/07/25 11:29 400 MG Metronidazole 500 mg Q12HR PO 03/06/25 10:00 03/07/25 21:30 500 MG Doxycycline Monohydrate 100 mg Q12HR PO 03/06/25 10:00 03/07/25 21:30 100 MG Pantoprazole Sodium 40 mg DAILY@0600 PO 03/06/25 06:00 03/08/25 07:02 40 MG Hydromorphone HCl 0.5 mg Q4HPRN PRN IV 03/07/25 10:15 03/08/25 08:59 0.5 MG Acetaminophen/ Hydrocodone Bitart 1 tab Q6HPRN PRN PO 03/07/25 23:30 Laboratory Results Laboratory Tests 03/05/25 23:02 Urinalysis Test 03/05/25 23:14 Urine Color Yellow (Yellow) Urine Clarity Clear (Clear) Urine pH 5.5 (5.0-9.0) Urine Specific [place] 1.031 (1.001-1.035) Urine Protein Negative (Negative) Urine Ketones Trace (Negative) Urine Blood Negative /uL (Negative) Urine Nitrite Negative (Negative) Urine Bilirubin Negative (Negative) Urine Urobilinogen Normal mg/dL (Negative) Urine Leukocyte Esterase Trace /uL (Negative) Urine RBC 5 /hpf (0 - 4) Urine Microscopic WBC 3 /HPF (0-5) Urine Squamous Epithelial Cells Few /hpf (<5) Urine Bacteria None seen /hpf (None Seen) Urine Mucus Few (None Seen) Urine Glucose Normal mg/dL (Normal) Urine Test Negative (Negative) Labs and/or images reviewed: Labs reviewed by me, Image(s) reviewed by me Assessment/Plan Assessment/Plan 3.9 cm right pelvic mass with pelvic pain: Consult for Dr. Conn. Appreciated. Advised the patient pelvic pain is secondary to pyelonephritis UTI with pyelonephritis treated with Rocephin Hypothyroidism Hypertension Chronic constipation History of bariatric surgery History of stroke CHF Sleep apnea History of coronary artery disease Peripheral neuropathy Time Spent 55 minutes Advanced care planning time 20 minutes Patient is full code Feels better and willing to go home FELICIA Arellano at bedside Plan discussed with: Patient My Orders Orders - ZURDO GOLDSTEIN MD Procedure Category Date Status Time Hydromorphone PHA 03/07/25 In Process Injection (Dilaudid 10:15 Date of Service: Mar 08, 2025 Billing Provider: ZURDO GOLDSTEIN MD Common Visit Codes: [id number] INP/OBS CARE(HIGH) ZURDO GOLDSTEIN MD Mar 08, 2025 09:43
--- NOTE | 2025-03-08 09:46 | DVHDS2 ---
Discharge Summary Date of Admission Mar 06, 2025 at 03:58 Date of Discharge: Mar 08, 2025 Admitting Diagnosis Right pelvic pain Wounds: None Labs/Diagnostic Data: Laboratory Results Test 03/06/25 11:00 03/06/25 04:48 03/06/25 03:54 03/05/25 23:14 Influenza Type A Antigen Negative (Negative) Influenza Type B Antigen Negative (Negative) SARS-CoV-2 Antigen (Rapid) Negative (NEGATIVE) Troponin I High Sensitivity < 3 ng/L (</=34) Treponema pallidum Antibody Non-reactive (Negative) Hepatitis A IgM Antibody Negative Hepatitis B Surface Antigen Negative (Negative) Hepatitis B Core IgM Antibody Negative (Negative) Hepatitis C Antibody Negative (Negative) HIV (1&2) Antibody Negative (Negative) Prothrombin Time 10.7 sec (9.3-11.8) Prothrombin Time INR 1.01 (0.9-1.15) Activated Partial Thromboplast Time 26.3 SEC (24.5-34.5) Urine Color Yellow (Yellow) Urine Clarity Clear (Clear) Urine pH 5.5 (5.0-9.0) Urine Specific [place] 1.031 (1.001-1.035) Urine Protein Negative (Negative) Urine Ketones Trace (Negative) Urine Blood Negative /uL (Negative) Urine Nitrite Negative (Negative) Urine Bilirubin Negative (Negative) Urine Urobilinogen Normal mg/dL (Negative) Urine Leukocyte Esterase Trace /uL (Negative) Urine RBC 5 /hpf (0 - 4) Urine Microscopic WBC 3 /HPF (0-5) Urine Squamous Epithelial Cells Few /hpf (<5) Urine Bacteria None seen /hpf (None Seen) Urine Mucus Few (None Seen) Urine Glucose Normal mg/dL (Normal) Urine Test Negative (Negative) Urine Opiates Screen Neg (NEGATIVE) Urine Fentanyl Screen Neg (NEGATIVE) Urine Barbiturates Screen Neg (NEGATIVE) Urine Phencyclidine Screen Neg (NEGATIVE) Urine Amphetamines Screen Neg (NEGATIVE) Urine Benzodiazepines Screen Neg (NEGATIVE) Urine Cocaine Screen Neg (NEGATIVE) Urine Cannabinoids Screen Neg (NEGATIVE) Chlamydia trachomatis (YSABEL) Negative (Negative) Neisseria gonorrhoeae (YSABEL) Negative (Negative) Test 03/05/25 23:02 White Blood Count 5.7 10^3/uL (4.4-10.8) Red Blood Count 4.68 10^6/uL (4.0-5.20) Hemoglobin 14.1 g/dL (12.2-16.2) Hematocrit 43.2 % (36.0-46.0) Mean Corpuscular Volume 92.4 fL (80.0-100.0) Mean Corpuscular Hemoglobin 30.1 pg (28.0-32.0) Mean Corpuscular Hemoglobin Concent 32.5 g/dL (32.0-36.0) Red Cell Distribution Width 14.7 % (11.8-14.3) Platelet Count 216 10^3/uL (140-450) Mean Platelet Volume 7.2 fL (6.9-10.8) Neutrophils (%) (Auto) 45.3 % (37.0-80.0) Lymphocytes (%) (Auto) 46.8 % (10.0-50.0) Monocytes (%) (Auto) 6.0 % (0.0-12.0) Eosinophils (%) (Auto) 1.0 % (0.0-7.0) Basophils (%) (Auto) 0.9 % (0.0-2.0) Neutrophils # (Auto) 2.6 10 ^3/uL (1.6-8.6) Lymphocytes # (Auto) 2.7 10 ^3/uL (0.4-5.4) Monocytes # (Auto) 0.3 10 ^3/uL (0-1.3) Eosinophils # (Auto) 0.1 10 ^3/uL (0-0.8) Basophils # (Auto) 0 10 ^3/uL (0-0.2) Nucleated Red Blood Cells 0.1 % Sodium Level 148 mmol/L (136-145) Potassium Level 4.6 mmol/L (3.5-5.1) Chloride Level 109 mmol/L (98-107) Carbon Dioxide Level 29 mmol/L (20-31) Anion Gap 10 (5-15) Blood Urea Nitrogen 7 mg/dL (9-23) Creatinine 0.79 mg/dL (0.550-1.02) Glomerular Filtration Rate Calc 86 mL/min (>90) BUN/Creatinine Ratio 8.9 (10.0-20.0) Serum Glucose 87 mg/dL (74-106) Lactic Acid Level 1.5 mmol/L (0.4-2.0) Calcium Level 9.3 mg/dL (8.7-10.4) Phosphorus Level 3.8 mg/dL (2.4-5.1) Magnesium Level 2.1 mg/dL (1.6-2.6) Total Bilirubin 0.4 mg/dL (0.2-1.0) Aspartate Amino Transferase (AST) 43 U/L (13-40) Alanine Aminotransferase (ALT) 61 U/L (7-40) Alkaline Phosphatase 64 U/L (46-116) C-Reactive Protein High Sensitivity 0.34 mg/dL (<1.0) Total Protein 7.1 g/dL (5.7-8.2) Albumin 4.0 g/dL (3.2-4.8) Triglycerides Level 84 mg/dL (< 150) Cholesterol Level 143 mg/dL (< 200) LDL Cholesterol 36 mg/dL (< 100) HDL Cholesterol 87 mg/dL (40-59) Lipase 40 U/L (12-53) Vitamin B12 Level 915 pg/mL (211-911) Vitamin D 25-Hydroxy 86.5 ng/mL (30.0-100) Thyroid Stimulating Hormone (TSH) 2.92 uIU/mL (0.55-4.78) Other Laboratory Tests 03/05/25 23:02 Brief Hx & Hospital Course: Year-old female with a history of hypothyroidism hypertension chronic constipation status post bariatric surgery history of stroke CHF sleep apnea history of coronary artery disease we will for neuropathy came in complaining of right pelvic pain found to have UTI with a pyelonephritis treated with Rocephin. Also had 3.9 cm right pelvic mass which has chronic seen by nurse obgyn Dr. Diaz who felt the patient is secondary to the pyelonephritis and no gynecologic intervention needed. Patient feels better afebrile discharged home on Cipro and tramadol she will follow up with the primary Dr Consults/Reason for consult Line Mover Dr. Conn Operations or Procedures CT abdomen pelvis without contrast Pelvic ultrasound Condition at Discharge: Fair Final Diagnosis/Problems List 3.9 cm right pelvic mass with pelvic pain: Consult for Dr. Conn. Appreciated. Advised the patient pelvic pain is secondary to pyelonephritis UTI with pyelonephritis treated with Rocephin Hypothyroidism Hypertension Chronic constipation History of bariatric surgery History of stroke CHF Sleep apnea History of coronary artery disease Peripheral neuropathy Discharge Disposition: Home Discharge Instruct/Medications Diet: Cardiac 2g Na,low cholest Activity: Light activity Follow Up/Referral: Follow up With your primary Dr Trent all previous home medications Medications: Cipro Tramadol Transmitted to pharmacy Scheduled Aspirin (Aspirin Low Dose), 81 MG PO DAILY, (Reported) Carvedilol (Carvedilol), 1 TAB PO BID, (Reported) Cetirizine HCl (Cetirizine Hydrochloride), 1 TAB PO DAILY, (Reported) Cholecalciferol (Vitamin D3), 50 MCG PO DAILY, (Reported) Ciprofloxacin Hcl (Cipro), 1 TAB PO BID Famotidine (Pepcid Tablet), 1 TAB PO BID, (Reported) Gabapentin (Gabapentin), 1 TAB PO BID, (Reported) Levothyroxine Sodium (Synthroid), 50 MCG PO DAILY, (Reported) Metoclopramide Hcl (Reglan), 10 MG PO BID Scheduled PRN Tramadol HCl (Tramadol HCl), 50 MG PO QID PRN 39 (Time taken discharge summary 39 minutes) Discharge Statement: "Patient was advised to return to the ER or call 911 if any headaches, dizziness, shortness of breath, chest pain, abdominal pain, bleeding, fevers, or worsening of medical condition. Patient was counseled about treatment plan, medications, possible side effects, patientverbalized understanding. All questions were answered to the best of my ability. This discharge took greater then 30 minutes in planning, reviewing documentation, counseling the patient, and discussing with other team members." ASSESSMENT ASSESSMENT Hospital Course Improved Assessment 3.9 cm right pelvic mass with pelvic pain: Consult for Dr. Conn. Appreciated. Advised the patient pelvic pain is secondary to pyelonephritis UTI with pyelonephritis treated with Rocephin Hypothyroidism Hypertension Chronic constipation History of bariatric surgery History of stroke CHF Sleep apnea History of coronary artery disease Peripheral neuropathy Date of Service: Mar 08, 2025 Billing Provider: ZURDO GOLDSTEIN MD Common Visit Codes: 32830-NJR/OBS DISCH DAY >30min ZURDO GOLDSTEIN MD Mar 08, 2025 09:46
[2025-03-08 10:32] VITALS: BP 135/89; PULSE 73; RESP 18; TEMP 97; O2SAT 98
== END 2025-03-08 11:11 | disposition home or self-care (01) | DRG 463 ==
LOC: ER 21:01 → OVERFLOW 03-06 03:58 → EAST 03-06 05:42
PROVIDERS: ADMIT Family Medicine; ATTEND Family Medicine
DX: N12 Tubulo-interstitial nephritis, not specified as acute or chronic (principal); E87.0 Hyperosmolality and hypernatremia; I11.0 Hypertensive heart disease with heart failure; N73.9 Female pelvic inflammatory disease, unspecified; I50.9 Heart failure, unspecified; Z20.822 Contact with and (suspected) exposure to COVID-19; E03.9 Hypothyroidism, unspecified; E86.0 Dehydration; G47.30 Sleep apnea, unspecified; G62.9 Polyneuropathy, unspecified; K59.09 Other constipation; J45.909 Unspecified asthma, uncomplicated; E78.5 Hyperlipidemia, unspecified; I25.10 Atherosclerotic heart disease of native coronary artery without angina pectoris; R74.01 Elevation of levels of liver transaminase levels; R19.00 Intra-abdominal and pelvic swelling, mass and lump, unspecified site; Z88.5 Allergy status to narcotic agent; Z88.2 Allergy status to sulfonamides; Z86.73 Personal history of transient ischemic attack (TIA), and cerebral infarction without residual deficits; Z86.718 Personal history of other venous thrombosis and embolism; Z87.442 Personal history of urinary calculi; Z82.49 Family history of ischemic heart disease and other diseases of the circulatory system; Z80.0 Family history of malignant neoplasm of digestive organs; Z98.84 Bariatric surgery status; Z81.8 Family history of other mental and behavioral disorders
CPT/HCPCS: 36415; 74176; 76856; 80053; 80061; 80074; 80307; 81001; 81025; 82306; 82607; 83605; 83690; 83735; 84100; 84443; 84484; 85025; 85610; 85730; 86141; 86703; 86780; 87426; 87804; 93886; G0378; J1885; J2405

== ENCOUNTER 2025-04-25 11:35 | Emergency (ER) | payer MEDICAID ==
[~2025-04-25] VITALS: Ht 157.5 cm; Wt 80.1 kg
[~2025-04-25 11:35] MED LIST changes: +CIPR-173 PO; +TRAM-626 PO
--- NOTE | 2025-04-25 11:45 | ED.PDOC ---
History of Present Illness HPI Comments This is a 60-year-old female who comes in with chief complaint of dizziness as well as elevated blood pressure. The patient lives with her daughter and states that she gets home health care because she has been in and out of the hospital. She states that today when they checked on her her blood pressure was a little bit elevated at when she walked in the nurse to the door, she did have some dizziness. 911 was called by the nurse. The patient denies any chest pain or shortness for breath. There has been no nausea, vomiting or diarrhea. The blood pressure at that time was a systolic of 170. The patient denies any complaints upon arrival to the emergency department's. The patient's blood pressure has now decreased. She states that she is ready to go home. Time Seen by MD: 11:40 Primary Care Provider: unknown Reviewed Notes: Nurses Notes, Computer Aide Notes, Medications, Allergies (Allergies listed above) Allergies: Coded Allergies: Propofol (Verified Allergy, Unknown, 04/02/21) Sulfa Antibiotics (Verified Allergy, Unknown, 04/02/21) Hydrocodone (Verified Adverse Reaction, Unknown, 03/07/25) Ibuprofen (Unverified Adverse Reaction, Unknown, 03/08/25) advised by the bariatric surgeon not to take ibuprofen PO per patient Home Meds Active Scripts Tramadol HCl (Tramadol HCl) 50 Mg Tab, 50 MG PO QID PRN, #30 TAB Prov:ZURDO GOLDSTEIN MD 03/08/25 Ciprofloxacin Hcl (Cipro) 500 Mg Tab, 1 TAB PO BID, #20 TAB Prov:ZURDO GOLDSTEIN MD 03/08/25 Metoclopramide Hcl (Reglan) 10 Mg Tab, 10 MG PO BID, #30 TAB Prov:ZURDO GOLDSTEIN MD 04/11/24 Reported Medications Gabapentin (Gabapentin) 600 Mg Tab, 1 TAB PO BID 04/10/24 Cetirizine HCl (Cetirizine Hydrochloride) 10 Mg Tab, 1 TAB PO DAILY 04/10/24 Carvedilol (Carvedilol) 25 Mg Tab, 1 TAB PO BID 04/10/24 Cholecalciferol (VITAMIN D3) 2,000 Unit Tab, 50 MCG PO DAILY 04/10/24 Famotidine (PEPCID TABLET) 20 Mg Tb, 1 TAB PO BID 04/10/24 Aspirin (Aspirin Low Dose) 81 Mg Chw, 81 MG PO DAILY, TAB.CHEW 03/24/22 Levothyroxine Sodium (Synthroid) 25 Mcg Tab, 50 MCG PO DAILY, TAB 03/24/22 Information Source: Patient, Emergency Med Personnel Mode of Arrival: EMS Severity: None Timing: Minutes Duration: Intermittent Prehospital treatment: None Associated signs and symptoms The patient had an episode of dizziness Past Medical History PAST MEDICAL HISTORY: Asthma, CHF, CVA, High Lipids, HTN, Kidney Stones Surgical History: Surgical History (Other): Gastric sleeve, gastric bypass, right knee surgery x2, arterial embolism LOCATION MAN History: Uterine Fibroids Family History Family History: Family hx of DM, Family hx of HTN Social History Smoker: Non-Smoker Alcohol: Denies ETOH Use Drugs: Denies Drug Use Lives In: Home Constitutional: denies: chills, diaphoresis, fatigue, fever, malaise, sweats, weakness, others EENTM: denies: blurred vision, double vision, ear bleeding, ear discharge, ear drainage, ear pain, ear ringing, eye pain, eye redness, hearing loss, mouth pain, mouth swelling, nasal discharge, nose bleeding, nose congestion, nose pain, photophobia, tearing, throat pain, throat swelling, voice changes, others Respiratory: denies: cough, hemoptysis, orthopnea, SOB at rest, shortness of breath, SOB with excertion, stridor, wheezing, others Cardiovascular: denies: chest pain, dizzy spells, diaphoresis, Dyspnea on exertion, edema, irregular heart beat, left arm pain, lightheadedness, palpitations, PND, syncope, others Gastrointestinal: denies: abdomen distended, abdominal pain, blood streaked bowels, constipated, diarrhea, dysphagia, difficulty swallowing, hematemesis, melena, nausea, poor appetite, poor fluid intake, rectal bleeding, rectal pain, vomiting, others Genitourinary: denies: abnormal vagina bleeding, burning, dyspareunia, dysuria, flank pain, frequency, hematuria, incontinence, pain, , vagina discharge, urgency, others Neurological: reports: dizziness; denies: fainting, headache, left sided numbness, left sided weakness, numbness, paresthesia, pre-existing deficit, right sided numbness, right sided weakness, seizure, speech problems, tingling, tremors, weakness, others Musculoskeletal: denies: back pain, gout, joint pain, joint swelling, muscle pain, muscle stiffness, neck pain, others Integumetry: denies: bruises, change in color, change in hair/nails, dryness, laceration, lesions, lumps, rash, wounds, others Allergic/Immunocompromised: denies: Difficulty Healing, Frequent Infections, Hives, Itching, others Hematologic/Lymphatic: denies: anemia, blood clots, easy bleeding, easy bruising, swollen glands, others Endocrine: denies: excessive hunger, excessive sweating, excessive thirst, excessive urination, flushing, intolerance to cold, intolerance to heat, unexplained weight gain, unexplained weight loss, others Psychiatric: denies: anxiety, bipolar disorder, depression, hopeless, panic disorder, schizophrenia, sleepless, suicidal, others Physical Exam General Appearance: No Apparent Distress HEENT: Normal ENT Inspection, Pharynx Normal, TMs Normal Neck: Full Range of Motion, Non-Tender, Normal, Normal Inspection Respiratory: Chest Non-Tender, Lungs Clear, No Accessory Muscle Use, No Respiratory Distress, Normal Breath Sounds Cardiovascular: No Edema, No JVD, No Murmur, No Gallop, Normal Peripheral Pulses, Regular Rate/Rhythm Breast Exam: Deferred Gastrointestinal: No Organomegaly, Non Tender, No Pulsatile Mass, Normal Bowel Sounds, Soft Genitalia: Deferred Pelvic: Deferred Rectal: Deferred Extremities: No calf tenderness, Normal capillary refill, Normal inspection, Normal range of motion, Non-tender, No pedal edema Musculoskeletal : Apperance: Normal Neurologic: Alert, wall worker II-XII nml as Tested, No Motor Deficits, Normal Affect, Normal Mood, No Sensory Deficits Cerebellar Function: Normal Reflexes: Normal Skin: Dry, Normal Color, Warm Lymphatic: No Adenopathy Was a procedure done? Was a procedure done?: No EKG EKG : Pulse Rate (adult): 94 [place]: Normal Cardiac Rhythm: NSR Block: None ST: Nonsp Differential Dx Considerations may include: Generalized weakness, hypertensive urgency X-Ray, Labs, Meds, VS The patient is normotensive at this time. At this time, the patient will be discharged The patient states that she is symptom-free and would like to go home. The patient understands and agrees with the management. Time of 1ST Reevaluation: 11:48 Reevaluation 1ST: Improved Patient Education/Counseling: Diagnosis, Treatment, Prognosis, Need For Follow Up Family Education/Counseling: No Family Present SEPSIS Sepsis Screen Physician Orders Electrocardigram (04/25/25 11:41) Departure 1 Departure Time of Disposition: 11:47 Impression: Primary Impression: Hypertensive urgency Disposition: 01 HOME / SELF CARE / HOMELESS Condition: Fair Discharged With: Self Critical Care Note Critical Care Time?: No Stability Stability form required: No Heart Score Heart Score: Heart Score Response (Comments) Value History N/A 0 EKG N/A 0 Age N/A 0 Risk Factors N/A 0 Troponin N/A 0 Total 0 COLLEEN BEASLEY MD Apr 25, 2025 11:45
[2025-04-25 11:48] VITALS: BP 146/92; RESP 16; TEMP 98.7; O2SAT 97
[2025-04-25 11:51] VITALS: PULSE 94
--- NOTE | 2025-04-27 01:23 | ECG ---
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
[2025-04-30] MEDS ORDERED: MAGN241.4 PO (15:47)
[2025-04-30] MEDS ORDERED: METO25TA36 PO (15:47)
[2025-04-30] MEDS ORDERED: HYDR-3682 PO (15:47)
[2025-04-30] MEDS ORDERED: HYDR25TA5 PO (15:47)
[2025-04-30] MEDS ORDERED: TRAM-626 PO (15:47)
[2025-04-30] MEDS ORDERED: MULT1CAP35 PO (15:47)
[2025-04-30] MEDS ORDERED: B-COCAP34 OR (15:47)
== END 2025-04-25 13:08 | disposition home or self-care (01) ==
LOC: ER 11:35 → EDBD 11:35 → ER 13:08
DX: I16.0 Hypertensive urgency (principal); I11.0 Hypertensive heart disease with heart failure; I50.9 Heart failure, unspecified; E78.5 Hyperlipidemia, unspecified; J45.909 Unspecified asthma, uncomplicated; Z79.899 Other long term (current) drug therapy; Z79.890 Hormone replacement therapy; Z79.82 Long term (current) use of aspirin; Z98.84 Bariatric surgery status; Z88.6 Allergy status to analgesic agent; Z86.73 Personal history of transient ischemic attack (TIA), and cerebral infarction without residual deficits; Z88.5 Allergy status to narcotic agent; Z88.2 Allergy status to sulfonamides; Z87.442 Personal history of urinary calculi
CPT/HCPCS: 93005

== ENCOUNTER 2025-05-08 08:16 | Day surgery (SDC) | payer MEDICAID ==
[2025-04-29 11:14] LABS: Hematocrit 42.5 % (36.0-46.0); Hemoglobin 14.2 g/dL (12.2-16.2); Mean Corpuscular Hemoglobin 30.3 pg (28.0-32.0); Mean Corpuscular Volume 90.6 fL (80.0-100.0); Nucleated Red Blood Cells % 0.0 %
[2025-04-29 11:31] LABS: INR 1.0 (0.9-1.15); Partial Thromboplastin Time 25.6 SEC (24.5-34.5); Prothrombin Time 10.6 sec (9.3-11.8)
[2025-04-29 11:40] LABS: Urine Protein, UAD Negative (Negative)
[2025-04-29 11:56] LABS: Albumin 4.3 g/dL (3.2-4.8); Alkaline Phosphatase 65 U/L (46-116); Anion Gap 9 (5-15); BUN/Creatinine Ratio 15.1 (10.0-20.0); Bilirubin, Total 0.4 mg/dL (0.2-1.0); Blood Urea Nitrogen 11 mg/dL (9-23); Calcium 9.9 mg/dL (8.7-10.4); Carbon Dioxide 30 mmol/L (20-31); Chloride 105 mmol/L (98-107); Glucose 92 mg/dL (74-106); Potassium 3.7 mmol/L (3.5-5.1); Sodium 144 mmol/L (136-145); Total Protein 7.3 g/dL (5.7-8.2)
[2025-04-29 11:58] LABS: Alanine Aminotransferase 54 U/L (7-40)
[~2025-05-08] VITALS: Ht 157.5 cm; Wt 80.7 kg
[~2025-05-08 08:16] MED LIST changes: +B-COCAP34 OR; -CARV25TA55 PO; -CIPR-173 PO; -FAMO20TA10 PO; -GABA-339 PO; +HYDR-3682 PO; +HYDR25TA5 PO; +MAGN241.4 PO; -METO-281 PO; +METO25TA36 PO; +MULT1CAP35 PO
--- NOTE | 2025-05-08 09:38 | DVHHP2 ---
GI H&P Pre-Op Assessment Date: 05/08/25 Chief complaint: Positive Cologuard HPI: per clinic note Past medical history: per clinic note Past surgical history: per clinic note Family history: per clinic note Physical exam: General: NAD, AAOX3 HEENT: PERRL, no scleral icterus, normal hearing, gums without lesions or bleeding, oropharynx clear without erythema or exudate. Neck: Supple without enlargement of the thyroid, or lymphadenopathy. Chest: Normal size and shape, no tenderness, lung [place] clear to auscultation and percussion, nonlabored breathing. Heart: RRR, no murmur Abdomen: non-distended, no tenderness to palpation, +BS, no hepatosplenomegaly Extremities: no edema Neurological: CN II-XII intact, sensation intact in all extremities, 5+ strength in all extremities Skin: No rashes, No jaundice Assessment: - Positive Cologuard Plan: - Colonoscopy - Risks (bleeding, infection, perforation, reaction to sedation medications and cardiopulmonary arrest) and benefit of the procedure were explained to patient. Patient agrees to undergo the procedure. NALLELY GRADY MD May 08, 2025 09:38
[2025-05-08] MEDS ORDERED: KETAMINE 50mg/ML 10ml Vial 10 ML ONE (09:43)
[2025-05-08] MEDS ORDERED: MIDAZOLAM HCL 2MG/2ML 2ml VIAL (1mg/ml) ONE (09:43)
[2025-05-08] MEDS ORDERED: fentaNYL CITRATE 100 MCG/2 ML VL ONE (09:43)
--- NOTE | 2025-05-08 10:01 | DVHOP2 ---
Operative Report DATE OF OPERATION: 05/08/25 PROCEDURE: Colonoscopy. PREOPERATIVE INDICATION: The patient is a 60 -year-old female undergoing colonoscopy for positive Cologuard test. POSTOPERATIVE DIAGNOSES: 1. No large polyp or mass was observed. 2. Internal hemorrhoids. PROCEDURE PERFORMED BY: Parish Jacobson M.D. SCOPE: Olympus videocolonoscope. ASA CLASS: 3 PREOPERATIVE MEDICATIONS: MAC with Dr Roque PROCEDURE IN DETAIL: After obtaining an informed consent, the patient was placed on left lateral decubitus position. She was then sedated with the above medications. A rectal examination was performed that was normal. The colonoscope was then passed through the anus into the rectosigmoid and through the descending, transverse, and ascending colon up to the cecum with visualization of the appendiceal orifice, base of the cecum and the ileocecal valve. No large polyp or mass was observed. There were internal hemorrhoids. The colonoscope was then withdrawn. The patient tolerated the procedure well without difficulty. WITHDRAWAL TIME: 6 minutes QUALITY OF THE PREP: [place] Bowel Prep score: 4 COMPLICATIONS : None SPECIMENS: None DISPOSITION: D/C to home PLAN: 1. Repeat colonoscopy in five years for colon cancer screening. PARISH JACOBSON MD May 08, 2025 10:01
--- NOTE | 2025-05-08 10:02 | DVHDS2 ---
Physician Discharge Progress N Final Diagnosis: Internal hemorrhoids Operations or Procedures: Operations or Procedures Colonoscopy Condition on Discharge: Good Disposition: Home Discharge Instructions: Diet: Regular Activity: No Restrictions, As Tolerated Medications: Resume previous home medications Follow Up Care: Discharge Statement: "Patient was advised to return to the ER or call 911 if any headaches, dizziness, shortness of breath, chest pain, abdominal pain, bleeding, fevers, or worsening of medical condition. Patient was counseled about treatment plan, medications, possible side effects, patientverbalized understanding. All questions were answered to the best of my ability. This discharge took greater then 30 minutes in planning, reviewing documentation, counseling the patient, and discussing with other team members." NALLELY GRADY MD May 08, 2025 10:02
[2025-05-08 10:06] VITALS: PULSE 68; RESP 12; O2SAT 100
[2025-05-08 10:36] VITALS: BP 122/83; PULSE 66; RESP 14; O2SAT 100
== END 2025-05-08 10:50 | disposition home or self-care (01) ==
LOC: GI 08:16
PROVIDERS: ATTEND Internal Medicine Gastroenterology
DX: R19.5 Other fecal abnormalities (principal); K64.8 Other hemorrhoids; I10 Essential (primary) hypertension; I25.10 Atherosclerotic heart disease of native coronary artery without angina pectoris; E03.9 Hypothyroidism, unspecified; Z79.899 Other long term (current) drug therapy; Z98.84 Bariatric surgery status; Z86.73 Personal history of transient ischemic attack (TIA), and cerebral infarction without residual deficits; Z98.891 History of uterine scar from previous surgery; Z98.890 Other specified postprocedural states; Z88.2 Allergy status to sulfonamides; Z88.8 Allergy status to other drugs, medicaments and biological substances
CPT/HCPCS: 36415; 45378; 80053; 81001; 85025; 85610; 85730; J2250; J3010; J7030